=== PATIENT | male | born 1955 | race Caucasian/White ===

== ENCOUNTER 2016-09-07 17:23 | Observation (INO) | payer BC ==
[2016-09-07] MEDS ORDERED: 0.9 % SODIUM CHLORIDE 1,000 ML BAG IV ONE (17:31)
[2016-09-07] MEDS ORDERED: HYDROMORPHONE HCL 1 MG/ML CPJ IVP ONE ×3 (17:31→18:54)
[2016-09-07] MEDS ORDERED: ONDANSETRON HCL IV 4 MG/2 ML VIAL IVP ONE (17:31)
[2016-09-07 17:50] LABS: BASO % 0.2 % (0-6); EOS % 1.4 % (0-6); GRAN % 53.3 % (47-80); HEMATOCRIT 43.5 % (42.0-52.0); HEMOGLOBIN 14.7 gm/dl (14.0-18.0); LYMPH % 36.7 % (16-45); MEAN CELL VOLUME 97.3 fl (81-97); MEAN CORPUSCULAR HEMOGLOBIN 32.9 pg (27-33); MEAN CORPUSCULAR HGB CONC 33.8 g/dl (32-36); MEAN PLATELET VOLUME 10.2 fl (7.4-10.4); MONO % 8.4 % (0-9); PLATELET COUNT 248 K/uL (130-400); RED BLOOD COUNT 4.47 M/uL (4.40-5.70); RED CELL DISTRIBUTION WIDTH 12.7 % (11.5-14.5); WHITE BLOOD COUNT W/O DIFF 12.2 K/uL (4.2-12.2)
--- NOTE | 2016-09-07 17:53 | Emergency Department Record ---
History of Present Illness - General Chief Complaint: Fall Injury Stated Complaint: FALL Time Seen by Provider: 09/07/16 17:31 Source: Patient Mode of Arrival: Wheelchair Limitations: No limitations - History of Present Illness Initial Comments: The patient is here due to falling 10 feet off a scaffold and landing on the R foot. He then rolled to his R and onto his R shoulder sustaining severe R foot pain and inability to walk. The patient denies hitting his head or injuring his back, neck, head, ribs or abdomen. Presently he is ONLY complaining of R foot pain. MD Complaint: Fall Onset/Timin -: Minutes(s) Fall From: Other When Fall Occurred: Just prior to arrival Fall Witnessed: Yes, by bystander Place Fall Occurred: Home Loss of Consciousness: None Prolonged Down Time?: No Symptoms Prior to Fall: None Severity: Severe Severity scale (1-10): 10 Quality: Sharp Context: Other Associated Symptoms: Unable to walk - Ricardo Coma Scale Eye Response: (4) Open spontaneously Motor Response: (6) Obeys commands Verbal Response: (5) Oriented Ricardo Total: 15 - Related Data Previous Rx's Medication Instructions Recorded Hydrocodone/Acetaminophen [Bryan 1 - 2 each PO .EVERY 4-6 HRS PRN 09/07/16 5-325 Tablet] #20 tablet Allergies Allergy/AdvReac Type Severity Reaction Status Date / Time codeine Allergy ALTERED Verified 09/17/14 13:22 MENTAL STATUS Travel Screening - Travel/Exposure Within Last 30 Days Have you traveled within the last 30 days?: No Past Medical History - SOCIAL HISTORY Smoking Status: Never smoker Alcohol Use: Occassional Drug Use: None - RESPIRATORY Hx Respiratory Disorders: No - CARDIOVASCULAR Hx Cardio Disorders: No - NEURO Hx Neuro Disorders: No - GI Hx GI Disorders: No - Hx Genitourinary Disorders: No - ENDOCRINE Hx Endocrine Disorders: No - MUSCULOSKELETAL Hx Musculoskeletal Disorders: Yes Hx Arthritis: Yes - PSYCH Hx Psych Problems: No - HEMATOLOGY/ONCOLOGY Hx Hematology/Oncology Disorders: No Family Medical History Any Significant Family History?: No Physical Exam - General General Appearance: Alert, Oriented x3, Cooperative, No acute distress - Head Head exam: Atraumatic, Normocephalic, Normal inspection - Eye Eye exam: Normal appearance, PERRL - Neck Neck exam: Normal inspection, Full ROM. negative: Tenderness (There is no posterior tenderness and no pain with ROM.) - Respiratory Respiratory exam: Normal lung sounds bilaterally. negative: Respiratory distress - Cardiovascular Cardiovascular Exam: Regular rate, Normal rhythm, Normal heart sounds - GI/Abdominal GI/Abdominal exam: Soft, Normal bowel sounds. negative: Guarding, Rebound, Rigid, Tenderness - Extremities Extremities exam: Normal inspection, Normal capillary refill, Tenderness (There is extreme R foot and ankle tenderness. There is presently no swelling or bruising.), Other (The R foot is NVI with normal pulses and sensation.). negative: Full ROM - Neurological Neurological exam: Alert, Oriented X3. negative: Altered, Motor sensory deficit - Psychiatric Psychiatric exam: negative: Anxious Course Vital Signs 09/07/16 17:41 Temperature 97.8 F Pulse Rate 87 Respiratory 20 Rate Blood Pressure 158/82 Pulse Ox 98 - Reevaluation(s) Reevaluation #1: The patient is doing very well at this time. He denies any pain other than the R foot and ankle. He specifically denies any TERRY, neck pain, CP, SOB, AP, or back pain. On exam his abdomen is very soft and nontender in all 4 quads. 09/07/16 18:06 09/07/16 18:07 Reevaluation #2: The patient is doing better at this time but is still having a lot of pain in the foot. I did discuss the xrays with the patient and the need for F/U with Orthopedics. I did discuss the case with Dr. Temple ([facility]) and he will see the patient at 2:00pm tomorrow for re-evaluation. 09/07/16 18:47 09/07/16 19:08 Reevaluation #3: The patient is still in extreme pain and discomfort. Due to that fact I did discuss the case with Dr. Jacob and he is willing to admit the patient overnight to the hospital for pain control. 09/07/16 19:07 Medical Decision Making - Data Complexity MDM Data: Labs Ordered and/or Reviewed, X-Ray Ordered and/or Reviewed - Lab Data Result diagrams: 09/07/16 17:40 09/07/16 17:40 Lab Results 09/07/16 Range/Units 17:40 WBC 12.2 (4.2-12.2) K/uL RBC 4.47 (4.40-5.70) M/uL Hgb 14.7 (14.0-18.0) gm/dl Hct 43.5 (42.0-52.0) % MCV 97.3 H (81-97) fl MCH 32.9 (27-33) pg MCHC 33.8 (32-36) g/dl RDW 12.7 (11.5-14.5) % Plt Count 248 (130-400) K/uL MPV 10.2 (7.4-10.4) fl Gran % 53.3 (47-80) % Lymphocytes % 36.7 (16-45) % Monocytes % 8.4 (0-9) % Eosinophils % 1.4 (0-6) % Basophils % 0.2 (0-6) % - Radiology Data Radiology results: Report reviewed (R Ankle: Neg R Foot: Comminuted Calcaneal fx.) Disposition Disposition: Admit Clinical Impression: Right calcaneal fracture Qualifiers: Encounter type: initial encounter Calcaneus location: unspecified portion of calcaneus Fracture type: closed Fracture alignment: displaced Qualified Code(s) : S92.001A - Unspecified fracture of right calcaneus, initial encounter for closed fracture Disposition: Still a Patient at [facility] Decision to Admit: Admit from ER Decision to Admit Date: 09/07/16 Decision to Admit Time: 19:06 Accepting Physician: Nidia Time Discussed w/Accepting Physician: 19:07 Condition: (1) Good Instructions: Calcaneal Fracture (ED) Additional Instructions: Please use Bryan for pain and ice and elevate the foot. Please return to the Hospital at 2pm tomorrow for recheck by Dr. Temple. Do not weight bear on the R foot and use crutches at all times. Prescriptions: Hydrocodone/Acetaminophen [Bryan 5-325 Tablet] 1 - 2 each PO .EVERY 4-6 HRS PRN #20 tablet PRN Reason: Pain Forms: Patient Portal Access Time of Disposition: 18:51
[2016-09-07 18:04] LABS: ALB/GLOB RATIO 1.6 (1.1-1.8); ALBUMIN 4.6 gm/dL (3.5-5.0); ALKALINE PHOSPHATASE 67 U/L (38-126); ALT/SGPT 25 U/L (21-72); ANION GAP 11.8 (7-16); AST/SGOT 33 U/L (17-59); BLOOD UREA NITROGEN 16 mg/dL (9-20); CARBON DIOXIDE 24.2 mmol/L (22-30); CREATININE 1.2 mg/dL (0.66-1.25); EST GLOMERULAR FILTRATION RATE > 60 ml/min; GLUCOSE,RANDOM 109 mg/dL (70-110); TOTAL PROTEIN 7.4 gm/dL (6.3-8.2)
[2016-09-07 18:05] LABS: INR 0.94; PARTIAL THROMBOPLASTIN TIME 23.6 SECONDS (24.5-39.1); PROTHROMBIN TIME (PATIENT) 10.6 SECONDS (9.5-12.1)
[2016-09-07] MEDS ORDERED: HYDROMORPHONE HCL 1 MG/ML CPJ IVP PRN (20:05)
[2016-09-07] MEDS ORDERED: ACETAMINOPHEN 500 MG TABLET PO PRN (20:05)
[2016-09-07] MEDS: ONDANSETRON HCL IV 4 MG/2 ML VIAL IVP PRN (23:40)
[2016-09-07] MEDS: HYDROMORPHONE HCL 2 MG/ML VIAL IVP PRN (23:54)
[2016-09-08] MEDS: HYDROMORPHONE HCL 2 MG/ML VIAL IVP PRN ×2 (04:11→07:48)
[2016-09-08] MEDS: ONDANSETRON HCL IV 4 MG/2 ML VIAL IVP PRN ×2 (04:18→07:46)
--- NOTE | 2016-09-08 07:14 | RADIOLOGY REPORT ---
EXAM: RIGHT ANKLE HISTORY: PATIENT FELL TEN FEET FROM SCAFFOLDING WITH RIGHT ANKLE PAIN. TECHNIQUE: Three views of the right ankle were obtained. Comparison: None. Encounter: Initial. FINDINGS: The right ankle appears intact with no definite fracture of the ankle seen, however, there is a comminuted fracture of the calcaneus. Please see the right foot report for further description. No dislocation at the right ankle evident. IMPRESSION: 1. NO FRACTURE OR DISLOCATION OF THE RIGHT ANKLE ITSELF IDENTIFIED. 2. COMMINUTED CALCANEAL FRACTURE. JOB NUMBER: [id number] MTDD
--- NOTE | 2016-09-08 07:18 | RADIOLOGY REPORT ---
EXAM: RIGHT FOOT HISTORY: PATIENT FELL TEN FEET OFF SCAFFOLDING AND LANDED ON RIGHT LEG WITH RIGHT FOOT PAIN. TECHNIQUE: Four views of the right foot were obtained. Comparison: None. Encounter: Initial. FINDINGS: There is a considerably comminuted fracture of the calcaneus with flattening of bowler's angle. The fracture line probably extends up into the subtalar joint although is not seen to extend anteriorly into the calcaneal cuboid joint. No additional fracture elsewhere in the right foot identified. No dislocation is seen. Mild hallux valgus deformity at the first MTP joint. IMPRESSION: COMMINUTED FRACTURE OF THE RIGHT CALCANEUS. JOB NUMBER: [id number] MTDD
[2016-09-08] MEDS: HYDROCODONE/APAP 7.5/325MG TABLET PO PRN ×2 (11:56→12:56)
[2016-09-08] MEDS ORDERED: HYDROCODONE/APAP 7.5/325MG TABLET PO ONE (12:53)
--- NOTE | 2016-09-08 13:58 | History and Physical Report ---
CHIEF COMPLAINT: Fall off scaffolding. HISTORY OF CHIEF COMPLAINT: This 61-year-old male was helping build a pole barn at his friend's house when the scaffolding fell over. He was about 6-10 feet off the ground. He landed on a hard surface mostly on the right heel and right leg. He rolled and he has a scrape on the right arm and his left knee is slightly sore. He was seen in the emergency department by Dr. Naik and admitted to the hospital because of severe pain. He could not get the patient to go home with a posterior mold. Dr. Temple was consulted by phone who is planning to see him today at 2-o'clock this afternoon at [facility]. MEDICAL HISTORY: He has had low back pain. A year ago he was taking Lincoln for that but he has not been on Lincoln for a year. He has had some arthritis in the past. SURGICAL HISTORY: Vasectomy, appendectomy, and stomach lining surgery. CURRENT MEDICATIONS: No medications on admission. ALLERGIES: CODEINE, which makes him nauseated and it caused some confusion for him. SOCIAL HISTORY: Unremarkable. Never smoked cigarettes. Occasional alcohol use. No illegal drug use. FAMILY HISTORY: Unremarkable. SYSTEMS REVIEW: HEENT: No upper respiratory infection symptoms, cough, cold, or congestion. Cardiovascular: No chest pain, palpitations, or arrhythmia. Respiratory: No cough, cold, or congestion. Gastrointestinal: No nausea, vomiting, diarrhea, black stools, or bloody stools. Genitourinary: No dysuria, hematuria, frequency, or burning on urination. Musculoskeletal: He denies any head pain, neck pain, spine pain. Denies chest pain. Denies abdominal pain. No loss of consciousness. He is moving his other 3 extremities well. The right extremity is very painful. He is moving it at the knee appropriately. He does have some arthritis. Neurological: No CVA, paralysis, or paresthesias. Endocrine: No diabetes or thyroid disease. Integument: No rash, ulcerative change of moles, or yellow skin. PHYSICAL EXAMINATION: VITAL SIGNS: Height 6 feet, weight 230 pounds. Temperature 97.9, pulse 87, blood pressure 164/97, respiratory rate 18, pulse ox 95% on room air. HEENT: Pupils are equal, round, and reactive to light and accommodation. Extraocular movements are intact. Throat is clear. Nose is clear. Tympanic membranes are gómez. NECK: Supple. No jugular venous distention. No hepatojugular reflux. No carotid bruits. Thyroid is smooth. CARDIOVASCULAR: Regular rate and rhythm without murmurs, clicks, rubs, or gallops. RESPIRATORY: Clear to auscultation and percussion. ABDOMEN: Soft, nontender. No hepatosplenomegaly. No masses. No tenderness. Bowel sounds active. No bruits. EXTREMITIES: No pedal edema. No cyanosis, no clubbing. Full range of motion. Peripheral pulses good. There is pain in the right ankle and foot area. He has a posterior mold on the right ankle and foot. He has good capillary refill of the toes and he has good sensation of the toes when I touch his toes. BREASTS: Normal male breasts. GENITALIA: Deferred. NEUROLOGIC: Cranial nerves II-XII intact. No gross deficits. Sensation normal, strength normal. Deep tendon reflexes equal bilaterally. Babinski negative. MENTAL STATUS: Alert and oriented x3. IMPRESSION: 1. Right calcaneus comminuted fracture of the foot. 2. Strain of the left knee. 3. Abrasion to the right shoulder. PLAN: Dr. Temple for consultation. Pain control. We will switch over to Lincoln 7.5 and see how he tolerates that. [facility]
[2016-09-08] MEDS ORDERED: OXYCODONE/APAP 7.5MG/325MG TABLET PO PRN (14:06)
--- NOTE | 2016-09-08 14:06 | Discharge Note ---
VTE H&P Assessment - Risk for VTE Risk for VTE: No Risk Level: Very Low Risk Assessment Date: 09/08/16 Risk Assessment Time: 14:17 VTE Orders Placed or Will Be Placed: No VTE Reason for No Prophylaxis: Not Indicated Discharge Medications - Discharge Medications Prescriptions: Hydrocodone/Acetaminophen [Hamilton 5-325 Tablet] 1 - 2 each PO .EVERY 4-6 HRS PRN #20 tablet PRN Reason: Pain Oxycodone HCl [Oxycontin] 20 mg PO Q12H #10 Oxycodone HCl/Acetaminophen [Percocet 7.5mg/325mg] 1 each PO Q4H PRN #40 tab PRN Reason: Analgesia Home Medications: Ambulatory Orders Hydrocodone/Acetaminophen [Hamilton 5-325 Tablet] 1 - 2 each PO .EVERY 4-6 HRS PRN #20 tablet 09/07/16 [Last Taken Unknown] Oxycodone HCl [Oxycontin] 20 mg PO Q12H #10 09/08/16 [Last Taken Unknown] Oxycodone HCl/Acetaminophen [Percocet 7.5mg/325mg] 1 each PO Q4H PRN #40 tab 04/15 [Last Taken Unknown] Discharge Note - Date Date of Discharge Note: 09/08/16 Condition: (1) Good Instructions: Calcaneal Fracture (ED) Additional Instructions: Please use Hamilton for pain and ice and elevate the foot. Please return to the Hospital at 2pm tomorrow for recheck by Dr. Temple. Do not weight bear on the R foot and use crutches at all times. Prescriptions: Hydrocodone/Acetaminophen [Hamilton 5-325 Tablet] 1 - 2 each PO .EVERY 4-6 HRS PRN #20 tablet PRN Reason: Pain Forms: Patient Portal Access
[2016-09-08] MEDS ORDERED: OXYCODONE SR 20 MG TAB.ER.12H PO SCH (14:15)
--- NOTE | 2016-09-08 14:30 | Discharge Note ---
VTE H&P Assessment - Risk for VTE Risk for VTE: No Risk Level: Very Low Risk Assessment Date: 09/08/16 Risk Assessment Time: 14:17 VTE Orders Placed or Will Be Placed: No VTE Reason for No Prophylaxis: Not Indicated Discharge Medications - Discharge Medications Prescriptions: Hydrocodone/Acetaminophen [Boyd 5-325 Tablet] 1 - 2 each PO .EVERY 4-6 HRS PRN #20 tablet PRN Reason: Pain Oxycodone HCl [Oxycontin] 20 mg PO Q12H #10 Oxycodone HCl/Acetaminophen [Percocet 7.5mg/325mg] 1 each PO Q4H PRN #40 tab PRN Reason: Analgesia Home Medications: Ambulatory Orders Hydrocodone/Acetaminophen [Boyd 5-325 Tablet] 1 - 2 each PO .EVERY 4-6 HRS PRN #20 tablet 09/07/16 [Last Taken Unknown] Oxycodone HCl [Oxycontin] 20 mg PO Q12H #10 09/08/16 [Last Taken Unknown] Oxycodone HCl/Acetaminophen [Percocet 7.5mg/325mg] 1 each PO Q4H PRN #40 tab 04/15 [Last Taken Unknown] Discharge Note - Date Date of Discharge Note: 09/08/16 Disposition: Home, Self-Care Condition: (1) Good Instructions: Calcaneal Fracture (ED) Additional Instructions: Please use Boyd for pain and ice and elevate the foot. Please return to the Hospital at 2pm tomorrow for recheck by Dr. Temple. Do not weight bear on the R foot and use crutches at all times. follow up with Dr. Jacob in one month sooner any problems Prescriptions: Hydrocodone/Acetaminophen [Boyd 5-325 Tablet] 1 - 2 each PO .EVERY 4-6 HRS PRN #20 tablet PRN Reason: Pain Oxycodone HCl [Oxycontin] 20 mg PO Q12H #10 Oxycodone HCl/Acetaminophen [Percocet 7.5mg/325mg] 1 each PO Q4H PRN #40 tab PRN Reason: Analgesia Forms: Patient Portal Access
--- NOTE | 2016-09-08 16:24 | Rehab Evaluation ---
Patient Information - Patient Information Diagnosis: Fractured R calcaneous Ordered Treatment: PT Evaluate and Treat Status: Initial Evaluation Past Medical/Surgical Hx: PAST MEDICAL/SURGICAL HISTORY Past Surgical History vasectomy appendix stomach lining PMH - Respiratory Hx Respiratory Disorders No PMH - Cardiovascular Hx Cardiovascular Disorders No PMH - Neuro Hx Neurological Disorders No PMH - GI Hx Gastrointestinal Disorders No PMH - Hx Genitourinary Disorders No PMH - Endocrine Hx Endocrine Disorders No PMH - Musculoskeletal Hx Musculoskeletal Disorders Yes Hx Arthritis Yes PMH - Psych Hx Psychiatric Problems No Hx Anxiety Yes PMH - Hematology/Oncology Hx Hematology/Oncology No Disorders Premorbid Status: Detail (The patient was independent with all mobility.) Social History: Detail (The patient lives with spouse in 2 story home with a flight of nine stairs to bed room and bathroom and a ramp at the enterance. The patient's states the patient will be living on first floor for now. The patient has a wheelchair he can also use for mobility.) Precautions: Other (NWB R) - Time With Patient Total Time Spent With Patient (Min): 30 Subjective Information - Subjective Information Per Patient (The patient complained of R LE pain but did not rate it using 0 to 10 pain scale.) Objective Data - Mental Status Patient Orientation: Oriented x3 - Visual Perception Appears within normal limits for therapeutic activities - ROM Not within normal limits (LE and UE ROM were WNL except for R ankle not tested secondary to immobilization.) - Strength/Tone Not within normal limits (UE and L LE strength was 5/5, R hip muscles were functional R knee and ankle were not tested secondary immobilization due to calcaneous fracture.) - Bed Mobility Independent (The patient was independent with supine to and from sit transfer and scooting up in bed.) - Transfers Independent (The patient was independent with sit to and from stand transfer.) - Balance Balance Sitting: Good Balance Standing: Fair (The patient required support of walker for support due to NWB status.) - Gait Detail (The patient ambulated independently with wheeled walker a distance of 45 feet x1, NWB on the R. The patient declined ambulating on stairs since he is using a ramp at home.) Therapy Assessment - Therapy Assessment Detail (The patient was independent with all mobility and safe using a wheeled walker. The patient correctly maintained NWB status.) Patient Education - Patient Education Teaching Topic: Equipment Use (Wheeled walker.) Response: Return Demonstration Teaching Method: Demonstration Teaching Recipient: Patient, Family Barriers To Learning: None Problem List - Problem List Physical Therapy Problem List: Detail (1) Calcaneal fracture) Goals - Goals Physical Therapy Goals: The patient was independent with bed mobility, transfers and ambulation with wheeled walker WB as tolerated on the R. Plan - Plan Physical Therapy Plan: The patient was discharged from PT to home.
--- NOTE | 2016-09-11 07:38 | CT SCAN REPORT ---
EXAM: CT OF THE RIGHT ANKLE WITH TWO DIMENSIONAL AND THREE DIMENSIONAL REFORMATS HISTORY: RIGHT CALCANEAL FRACTURE. TECHNIQUE: Contiguous axial images from the distal right tibia and fibula to the plantar aspect of the right ankle were obtained without contrast. Sagittal and coronal two dimensional as well as 3D/MIP reformatted images were obtained for better anatomic delineation. Comparison: Right ankle radiograph 09/07/16. FINDINGS: There is a severely comminuted fracture involving the entire right calcaneus. Depressed fractures of the calcaneal facets with Shawmut's angle of approximately 0. Numerous fracture lines extend to the posterior facet, middle facet, and anterior facet. Fracture lines extend to the anterior process of the calcaneus as well as the calcaneal tuberosity. No gross malalignment of the articular surfaces of the subtalar joint. The Lisfranc ligament appears intact. The ankle mortise appears intact. IMPRESSION: SEVERELY COMMINUTED FRACTURE INVOLVING THE ENTIRE RIGHT CALCANEUS INCLUDING THE SUBTALAR FACETS, ANTERIOR PROCESS OF THE CALCANEUS, AND CALCANEAL TUBERCLE. JOB NUMBER: [id number] MTDD
--- NOTE | 2016-09-11 09:43 | Medical Records Consult ---
DATE OF CONSULTATION: 09/08/2016 REASON FOR CONSULTATION: Right heel pain. This 61-year-old male was admitted to the hospital for overnight observation from the emergency room on 09/07/2016 when he had built some scaffolding, which he admits he did not construct properly, and he fell off of the scaffolding, falling approximately 6-8 feet, landing on both heels. The patient had severe pain. He felt a cracking sensation when he hit the ground. He did not complain of any back pain but did complain of pain in his left knee and his left foot, but that was minor discomfort compared to the severe pain that he had in his right heel. The x-rays which were obtained in the emergency department demonstrated evidence of a comminuted fracture of the calcaneus. Subsequently, a CT was ordered but not evaluated at the time of this consultation report. The radiographs which were reviewed showed a highly comminuted fracture with minimal displacement. There does appear to be fractures into the subtalar joint without significant displacement on the standard radiographs. The physical examination after removal of the splint placed in the emergency room demonstrates fracture blisters on both the medial and lateral side which were relatively small, being approximately 2 cm in greatest dimension. Extensive amount of swelling of his foot was present but the neurovascular status of his foot was intact. He had no calf pain, no thigh pain. DIAGNOSTIC IMPRESSION: Comminuted fracture of the right calcaneus. I have discussed the findings with the patient, placed him in a posterior sugar-tong plaster mold. He will follow up in the clinic in 2 weeks. He was given pain medications by Dr. Jacob and should he have any problems prior to being seen, he was instructed to call my office. ELLIOT
--- NOTE | 2016-09-11 09:53 | Discharge Summary ---
DISCHARGE DIAGNOSES: 1. Right calcaneus comminuted fracture. 2. Pain in the right foot and ankle. ATTENDING PHYSICIAN: Benjamin Jacob DO REASON FOR HOSPITALIZATION: This 61-year-old male fell off a scaffolding at his friend's house building a barn, and he landed on his right ankle and foot. He was seen in the emergency department by Dr. Naik because of severe pain. He was admitted to the hospital for pain control and to seek followup with Orthopedics to see Dr. Temple at 2 p.m. today on 09/08/2016. The patient required IV Dilaudid through the night and after consultation with Dr. Temple, a new splint has been applied. He was given training for a walker. HOSPITAL COURSE: Improved. DISCHARGE INSTRUCTIONS: Follow up with Dr. Temple on 09/21/2016 at [facility]. Pain medications on discharge: OxyContin 20 mg b.i.d. and 10 pills were prescribed. Percocet 7.5 one every 4 hours and 40 pills were prescribed. The patient was also instructed to follow up with me in a month and to follow up in the office sooner if he is having troubles with pain or any problems at all. ELLIOT
== END 2016-09-08 16:05 | disposition home or self-care (01) ==
LOC: ER 17:23 → MEDSURG 19:52
PROVIDERS: ADMIT Emergency Medicine; ATTEND Emergency Medicine
DX: G89.11 Acute pain due to trauma (principal); S92.021A Displaced fracture of anterior process of right calcaneus, initial encounter for closed fracture; W12.XXXA Fall on and from scaffolding, initial encounter; Y93.H3 Activity, building and construction; Y92.096 Garden or yard of other non-institutional residence as the place of occurrence of the external cause
CPT/HCPCS: 80053; 85025; 85610; 85730; 96374; 96375; 96376; 99217; 99220; 99285; J1170; J2405; J7030

== ENCOUNTER 2017-10-23 15:31 | Observation (INO) | payer BC ==
[2017-10-23] MEDS ORDERED: ASPIRIN 81 MG CHEWABLE TABLET PO ONE (15:59)
[2017-10-23] MEDS ORDERED: 0.9 % SODIUM CHLORIDE 1000ML 1,000 ML IV PRN (15:59)
[2017-10-23] MEDS ORDERED: ONDANSETRON HCL IV 4 MG/2 ML VIAL IVP ONE (16:03)
[2017-10-23] MEDS ORDERED: DIPHENHYDRAMINE HCL 50 MG/ML VIAL IV ONE (16:04)
--- NOTE | 2017-10-23 16:11 | Emergency Department Record ---
History of Present Illness - General Chief Complaint: Dizziness Stated Complaint: VOMITING,DIZINESS,SWEATS Time Seen by Provider: 10/23/17 15:59 Source: Patient, Family Mode of Arrival: Ambulatory Limitations: No limitations - History of Present Illness Initial Comments: Pt to ED by car with . One hour CHEMIST INTERN pt "sitting on swing set with grand kids and felt out of kilter". Pt states he is not dizzy but feels off equilibrium and became nauseated and vomited a small amount. Had sweating and "felt bad". Pt denies feeling chest pain or palpitations. No jaw or should/ back pain. Pt is an exsmoker that drinks "3-4 beers a day" but over the past 4 days has been drinking 8-12 beers a day while son is visiting from [place]. Has had "a few beers to day". Denies being " alcoholic". No DM, HTN, Cancer by history but admits he does not go to the doctor to be checked. Pt states he felt better on arrival but hten had an episode in [facility] ED of diaphoresis and vomiting. No CP in ED. Denies other drug use. MD Complaint: Lightheadedness Onset/Timin -: Days(s) Description: Nausea, Near-syncope, Off-balance, Sense of movement History of Same: No History of Trauma: No Severity: Severe Improves With: Nothing Worsens With: Nothing Associated Symptoms: Shortness of breath, Syncope, Weakness - Ricardo Coma Scale Eye Response: (4) Open spontaneously Motor Response: (6) Obeys commands Verbal Response: (5) Oriented [place] Total: 15 - Symptoms of Stroke Onset of Symptoms Date: 10/23/17 Onset of Symptoms Time: 15:30 Symptoms of stroke: Dizziness, Vertigo - Related Data Previous Rx's Medication Instructions Recorded Hydrocodone/Acetaminophen [[place] 1 - 2 each PO .EVERY 4-6 HRS PRN 09/07/16 5-325 Tablet] #20 tablet Allergies Allergy/AdvReac Type Severity Reaction Status Date / Time codeine Allergy ALTERED Verified 10/23/17 15:43 MENTAL STATUS Travel Screening - Travel/Exposure Within Last 30 Days Have you traveled within the last 30 days?: No Review of Systems Constitutional: Denies: Chills, Fever, Malaise, Weakness Eyes: Denies: Eye discharge, Eye pain, Vision change ENT: Reports: Congestion Respiratory: Denies: Cough, Hemoptysis, Wheezes Cardiovascular: Denies: Arrhythmia, Chest pain, Palpitations, Syncope Endocrine: Denies: Fatigue, Polydipsia, Polyuria Gastrointestinal: Reports: Nausea, Vomiting. Denies: Abdominal pain, Melena Skin: Denies: Bruising, Rash Neurological: Reports: Vertigo. Denies: Abnormal gait, Confusion, Headache Psychiatric: Denies: Depression Hematological/Lymphatic: Denies: Anemia Past Medical History - SOCIAL HISTORY Smoking Status: Former smoker Alcohol Use: Heavy Alcohol Use Comment: 3-4 beers/day Drug Use: None - RESPIRATORY Hx Respiratory Disorders: No - CARDIOVASCULAR Hx Cardio Disorders: Yes Hx Hypertension: Yes Comment:: high cholesterol - NEURO Hx Neuro Disorders: No - GI Hx GI Disorders: No - Hx Genitourinary Disorders: No - ENDOCRINE Hx Endocrine Disorders: No - MUSCULOSKELETAL Hx Musculoskeletal Disorders: Yes Hx Arthritis: Yes - PSYCH Hx Psych Problems: Yes Hx Anxiety: Yes - HEMATOLOGY/ONCOLOGY Hx Hematology/Oncology Disorders: No Family Medical History Any Significant Family History?: Yes Hx Dementia: Father Hx Stroke: Mother Physical Exam - General General Appearance: Oriented x3, Cooperative, Moderate distress Limitations: No limitations - Head Head exam: Atraumatic - Eye Eye exam: Normal appearance, PERRL, EOMI. negative: Nystagmus, Periorbital tenderness Pupils: Normal accommodation - ENT ENT exam: Mucous membranes moist, TM's normal bilaterally (bilateral wax) Nasal Exam: Normal inspection Mouth exam: Normal external inspection Throat exam: Normal inspection - Neck Neck exam: Normal inspection, Full ROM. negative: Lymphadenopathy, Tenderness - Respiratory Respiratory exam: Normal lung sounds bilaterally. negative: Rales, Respiratory distress, Rhonchi, Wheezes - Cardiovascular Cardiovascular Exam: Regular rate, Normal rhythm. negative: Irregular rhythm, Systolic murmur Peripheral Pulses: 2+: Radial (R), Radial (L), Dorsalis Pedis (R), Dorsalis Pedis (L) - GI/Abdominal GI/Abdominal exam: Soft, Normal bowel sounds. negative: Guarding, Rebound, Tenderness - Rectal Rectal exam: Deferred - exam: Deferred - Extremities Extremities exam: Normal inspection. negative: Joint swelling, Pedal edema - Neurological Neurological exam: Alert, CN II-XII intact, Oriented X3. negative: Motor sensory deficit - Psychiatric Psychiatric exam: Normal affect, Normal mood - Skin Skin exam: Normal color Stroke Assessment - NIH Stroke Scale 1a. Level of Consciousness: (0) Alert 1b. LOC Questions: (0) Answers Correctly 1c. LOC Commands: (0) Performs Tasks Correctly 2. Best Gaze: (0) Normal 3. Visual: (0) No Visual Loss 4. Facial Palsy: (0) Normal Symmetrical Movement 5a. Motor Arm Left: (0) No Drift 5b. Motor Arm Right: (0) No Drift 6a. Motor Leg Left: (0) No Drift 6b. Motor Leg Right: (0) No Drift 7. Limb Ataxia: (0) Absent 8. Sensory: (0) Normal 9. Best Language: (0) No Aphasia Course Vital Signs 10/23/17 15:36 Temperature 98.0 F Pulse Rate 81 Respiratory 20 Rate Blood Pressure 187/107 Pulse Ox 96 Procedures - EKG Initial Date: 10/23/17 Time: 16:17 EKG: Normal EKG (HR 76) Medical Decision Making - Lab Data Result diagrams: 10/23/17 15:45 10/23/17 15:45 Disposition Disposition: Admit Clinical Impression: Dizziness of unknown cause, Diaphoresis, Vomiting Clinical Impression: (Ruled Out): Cardiac anomaly Disposition: Still a Patient at [facility] Return To Work/School Note Provided: No Decision to Admit: Admit from ER Decision to Admit Date: 10/23/17 Decision to Admit Time: 18:21 Accepting Physician: Malena Menjivar Discussed w/Accepting Physician: 18:21 Condition: (3) Guarded Forms: Patient Portal Access Quality - Quality Measures Quality Measures: N/A - Blood Pressure Screening Does Patient Have Any of the Following: No Blood Pressure Classification: Hypertensive Reading Systolic Measurement: 187 Diastolic Measurement: 107 Screening for High Blood Pressure: < First Hypertensive BP, F/U Documented > [ [id number]] First Hypertensive Follow-up Interventions: Lifestyle modifications., Referral to alternative/primary care provider. Lifestyle Modification: Dietary Approaches to Stop Hypertension (DASH) Eating Plan
[2017-10-23 16:14] LABS: BASO % 0.2 % (0-6); EOS % 1.8 % (0-6); GRAN % 51.3 % (47-80); HEMATOCRIT 43.6 % (42.0-52.0); HEMOGLOBIN 15.1 gm/dl (14.0-18.0); LYMPH % 37.6 % (16-45); MEAN CELL VOLUME 97.5 fl (81-97); MEAN CORPUSCULAR HEMOGLOBIN 33.8 pg (27-33); MEAN CORPUSCULAR HGB CONC 34.6 g/dl (32-36); MEAN PLATELET VOLUME 10.2 fl (7.4-10.4); MONO % 9.1 % (0-9); PLATELET COUNT 225 K/uL (130-400); RED BLOOD COUNT 4.47 M/uL (4.40-5.70); RED CELL DISTRIBUTION WIDTH 12.6 % (11.5-14.5); WHITE BLOOD COUNT W/O DIFF 9.7 K/uL (4.2-12.2)
[2017-10-23 16:24] LABS: BLOOD UREA NITROGEN 16 mg/dL (8-23)
[2017-10-23 16:25] LABS: EST GLOMERULAR FILTRATION RATE > 60 mL/min; TOTAL PROTEIN 7.5 g/dL (6.6-8.7)
[2017-10-23 16:27] LABS: GLUCOSE,RANDOM 126 mg/dL (74-109)
[2017-10-23 16:29] LABS: INR 0.9; PARTIAL THROMBOPLASTIN TIME 24.9 SECONDS (24.5-39.1); PROTHROMBIN TIME (PATIENT) 10.1 SECONDS (9.5-12.1)
[2017-10-23 16:30] LABS: ALB/GLOB RATIO 1.6 (1.1-1.8); ALBUMIN 4.6 g/dL (4.0-5.0); ALKALINE PHOSPHATASE 70 U/L (40-129); ALT/SGPT 12 U/L (<41); AST/SGOT 26 U/L (10.0-50.0)
[2017-10-23 18:20] LABS: AMPHETAMINE SCREEN URINE NOT DETECTED; BARBITURATE SCREEN URINE NOT DETECTED; BENZODIAZEPINE SCREEN URINE NOT DETECTED; COCAINE SCREEN URINE NOT DETECTED; METHADONE SCREEN URINE NOT DETECTED; METHAMPHETAMINE SCREEN NOT DETECTED; OPIATE SCREEN URINE NOT DETECTED; OXYCODONE SCREEN URINE NOT DETECTED; PHENCYCLIDINE SCREEN URINE NOT DETECTED; PROPOXYPHENE SCREEN URINE NOT DETECTED; THC SCREEN URINE DETECTED; TRICYCLIC ANTIDEPRESSANT SCRN NOT DETECTED
[2017-10-24 07:53] LABS: BASO % 0.2 % (0-6); EOS % 1.6 % (0-6); GRAN % 58.7 % (47-80); HEMOGLOBIN 15.2 gm/dl (14.0-18.0); LYMPH % 29.9 % (16-45); MEAN CELL VOLUME 97.8 fl (81-97); MEAN CORPUSCULAR HEMOGLOBIN 33.8 pg (27-33); MEAN CORPUSCULAR HGB CONC 34.5 g/dl (32-36); MONO % 9.6 % (0-9); PLATELET COUNT 217 K/uL (130-400); RED CELL DISTRIBUTION WIDTH 12.8 % (11.5-14.5); WHITE BLOOD COUNT W/O DIFF 9.5 K/uL (4.2-12.2)
[2017-10-24 08:14] LABS: ALB/GLOB RATIO 1.6 (1.1-1.8); ALBUMIN 4.2 g/dL (4.0-5.0); ALKALINE PHOSPHATASE 65 U/L (40-129); ALT/SGPT 11 U/L (<41); AST/SGOT 23 U/L (10.0-50.0); BLOOD UREA NITROGEN 12 mg/dL (8-23); CREATININE 0.9 mg/dL (0.7-1.2); EST GLOMERULAR FILTRATION RATE > 60 mL/min; GLUCOSE,RANDOM 112 mg/dL (74-109); TOTAL PROTEIN 6.9 g/dL (6.6-8.7)
--- NOTE | 2017-10-24 08:34 | History & Physical ---
History of Present Illness - Date of Service Date of Service for History & Physical: 10/25/17 - History of Present Illness Admitting Diagnosis: dizziness with diaphoresis History of Present Illness: 62 to male admitted obs for 2 events of diaphoresis, dizziness, and vomiting. PMH limited, pt denies primary care or health management outpt. Former smoker, quit 20 years ago, daily ETOH use 3-4 beers daily but recent increase to up to 12 daily since son has been [place]. Denies alcoholism. Pt denies any current or chronic issues other than a URI that has turned into sinus issues causing congestion, nasal drainage, and pressure for the past week. Pt presented to ER via private care with . Reporting that he as on a swing, felt instantly dizzy, became diaphoretic, vomited and when down to his knees from the swing. Event was temporary, brought in to ER under his own power. Denies CP or any other radiating pain at that time. Another repeat event happened in ER, provider reported NSR on monitor but pt appeared in distress, diaphoretic and pale. Resolved on its own but remained for ACS r/o. BP 187/107, HR 81, RR 20, 96% RA, 98F WBC 9.7, hgb 15.1, Hct 43.6, plt 225 Na146, K 4, Cl 100, Cos 24, BUN 16, creatinine 1, GFR >60 1545, 2250, 0729 trop <0.010 trig 299 KDK 118m HDL 30, (total 189) EKG NSR CT head- negative for acute process, chronic sinusitis noted Card referral this afternoon Pt was medicated with IVP Benadryl 50mg, zofran 8mg IVP, ASA 81mg, and IVF NS at 75/hr. 10/24/17 Pt is asymptomatic other than continued complaints of sinus pressure and congestion. VSS through the night. Pt is A&Ox4. POC, last trop at 1500, Dr Feliz to see pt this afternoon. If negative cardiac concerns, dispo today with f/u new PCP, to be coordinated before dispo. Starting Flonase to decrease sinus complaints. 1430 rapid response called, pt was found to have sudden onset migraine with secondary hypertension. Pt reports having similar migraines 3 times in his life , related to stressful situations. Dr magana from ER managed RR, gave 0.1mg clonidine PO and 1mg ativan IVP. NIH negative, a&ox4. 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 BP still elevated, Dr Magana gave orders for repeat clonidine 0.1mg PO. Pt reports TERRY 5/ 10 after medications. 1600 Pt given toradol 30mg and solumedrol 125mg IVP for remaining headache cocktail. 1900 Pt is TERRY free but remains hypertensive with elevated HR high 90s sustained NSR (per nursing report). Metoprolol 12.5mg PO now ordered given, repeat BP HR in 1 hour. PCP none Travel Screening - Travel/Exposure Within Last 30 Days Have you traveled within the last 30 days?: No - Travel/Exposure Within Last Year Have you traveled outside the [place] in the last year?: No - Additonal Travel Details Have you been exposed to anyone with a communicable illness?: No - Travel Symptoms Symptom Screening: Joint & Muscle Aches, Weakness, Fatigue Review of Systems Constitutional: Denies: Chills, Fever, Malaise, Weakness Eyes: Denies: Eye discharge, Eye pain, Vision change ENT: Reports: Congestion Respiratory: Denies: Cough, Hemoptysis, Wheezes Cardiovascular: Denies: Arrhythmia, Chest pain, Palpitations, Syncope Endocrine: Denies: Fatigue, Polydipsia, Polyuria Gastrointestinal: Reports: Nausea, Vomiting. Denies: Abdominal pain, Melena Skin: Denies: Bruising, Rash Neurological: Reports: Vertigo. Denies: Abnormal gait, Confusion, Headache Psychiatric: Denies: Depression Hematological/Lymphatic: Denies: Anemia Past Medical History - SOCIAL HISTORY Smoking Status: Former smoker Alcohol Use: Occasional Alcohol Use Comment: regular use Drug Use: None - RESPIRATORY Hx Respiratory Disorders: No - CARDIOVASCULAR Hx Cardio Disorders: Yes Hx Hypertension: Yes Comment:: high cholesterol - NEURO Hx Neuro Disorders: No - GI Hx GI Disorders: No - Hx Genitourinary Disorders: No - ENDOCRINE Hx Endocrine Disorders: No - MUSCULOSKELETAL Hx Musculoskeletal Disorders: Yes Hx Arthritis: Yes - PSYCH Hx Psych Problems: Yes Hx Anxiety: Yes - HEMATOLOGY/ONCOLOGY Hx Hematology/Oncology Disorders: No Family Medical History Any Significant Family History?: Yes Family Hx Comment (NOT TO BE USED IN PLACE OF ITEMS BELOW): alzheimers, HTN Hx Dementia: Father Hx Stroke: Mother H&P Meds/Allergies - Allergies Allergies: Allergies Allergy/AdvReac Type Severity Reaction Status Date / Time codeine Allergy ALTERED Verified 10/23/17 15:43 MENTAL STATUS - Home Medications Previous Rx's Medication Instructions Recorded Hydrocodone/Acetaminophen [[place] 1 - 2 each PO .EVERY 4-6 HRS PRN 09/07/16 5-325 Tablet] #20 tablet - Active Medications Active Medications: Current Medications Aspirin (Ecotrin (Ec)) 81 mg PO DAILY NESTOR Physical Exam - Vital Signs Vital Signs: Vital Signs - Last 24 Hrs Temp Pulse Pulse Pulse Resp BP BP 10/24/17 06:07 10/24/17 06:00 97.9 F 74 16 10/24/17 02:00 97.9 F 65 16 10/23/17 22:00 97.9 F 64 16 10/23/17 21:00 56 L 70 18 10/23/17 19:48 98.4 F 70 18 154/87 10/23/17 19:10 84 20 184/110 10/23/17 18:00 82 151/97 10/23/17 17:30 75 160/79 10/23/17 17:14 67 16 172/90 10/23/17 16:16 69 20 171/93 10/23/17 15:36 98.0 F 81 20 187/107 BP Pulse Ox 10/24/17 06:07 98 10/24/17 06:00 178/92 98 10/24/17 02:00 121/77 96 10/23/17 22:00 146/85 98 10/23/17 21:00 10/23/17 19:48 92 L 10/23/17 19:10 98 10/23/17 18:00 10/23/17 17:30 10/23/17 17:14 98 10/23/17 16:16 96 10/23/17 15:36 96 - General General Appearance: Oriented x3, Cooperative, Moderate distress Limitations: No limitations - Head Head exam: Atraumatic - Eye Eye exam: Normal appearance, PERRL, EOMI. negative: Nystagmus, Periorbital tenderness Pupils: Normal accommodation - ENT ENT exam: Mucous membranes moist, TM's normal bilaterally (bilateral wax, left TM effusion, right TM obstructed by wax) Nasal Exam: Other (hypertrophic, red turbinates) Mouth exam: Normal external inspection Throat exam: Normal inspection - Neck Neck exam: Normal inspection, Full ROM. negative: Lymphadenopathy, Tenderness - Respiratory Respiratory exam: Normal lung sounds bilaterally. negative: Rales, Respiratory distress, Rhonchi, Wheezes - Cardiovascular Cardiovascular Exam: Regular rate, Normal rhythm. negative: Irregular rhythm, Systolic murmur Peripheral Pulses: 2+: Radial (R), Radial (L), Dorsalis Pedis (R), Dorsalis Pedis (L) - GI/Abdominal GI/Abdominal exam: Soft, Normal bowel sounds. negative: Guarding, Rebound, Tenderness - Rectal Rectal exam: Deferred - exam: Deferred - Extremities Extremities exam: Normal inspection, Tenderness (right ankle/foot- fx 1 yr ago ( slow healing)). negative: Joint swelling, Pedal edema - Neurological Neurological exam: Alert, CN II-XII intact, Oriented X3. negative: Motor sensory deficit - Psychiatric Psychiatric exam: Normal affect, Normal mood - Skin Skin exam: Normal color Results - Labs Result Diagrams: 10/24/17 07:29 10/24/17 07:29 Labs Last 24 Hours: Laboratory Results - last 24 hr 10/23/17 10/23/17 10/23/17 15:45 15:45 15:45 WBC 9.7 RBC 4.47 Hgb 15.1 Hct 43.6 MCV 97.5 H MCH 33.8 H MCHC 34.6 RDW 12.6 Plt Count 225 MPV 10.2 Gran % 51.3 Lymphocytes % 37.6 Monocytes % 9.1 H Eosinophils % 1.8 Basophils % 0.2 PT 10.1 INR 0.9 APTT 24.9 D-Dimer 0.51 Sodium 146 H Potassium 4.0 Chloride 100 Carbon Dioxide 24.0 Anion Gap 22.0 H BUN 16 Creatinine 1.0 Estimated GFR > 60 Random Glucose 126 H Calcium 9.4 Total Bilirubin 0.20 AST 26 ALT 12 Alkaline Phosphatase 70 Troponin T < 0.010 Total Protein 7.5 Albumin 4.6 Globulin 2.9 Albumin/Globulin Ratio 1.6 Urine Opiates Screen Ur Oxycodone Screen Urine Methadone Screen Ur Propoxyphene Screen Ur Barbituates Screen Ur Tricyclics Screen Ur Phencyclidine Scrn Ur Amphetamine Screen U Methamphetamines Scrn U Benzodiazepines Scrn Urine Cocaine Screen Urine Cannabis Screen Ethyl Alcohol 10/23/17 10/23/17 10/23/17 15:45 18:10 22:50 WBC RBC Hgb Hct MCV MCH MCHC RDW Plt Count MPV Gran % Lymphocytes % Monocytes % Eosinophils % Basophils % PT INR APTT D-Dimer Sodium Potassium Chloride Carbon Dioxide Anion Gap BUN Creatinine Estimated GFR Random Glucose Calcium Total Bilirubin AST ALT Alkaline Phosphatase Troponin T < 0.010 Total Protein Albumin Globulin Albumin/Globulin Ratio Urine Opiates Screen Not detected Ur Oxycodone Screen Not detected Urine Methadone Screen Not detected Ur Propoxyphene Screen Not detected Ur Barbituates Screen Not detected Ur Tricyclics Screen Not detected Ur Phencyclidine Scrn Not detected Ur Amphetamine Screen Not detected U Methamphetamines Scrn Not detected U Benzodiazepines Scrn Not detected Urine Cocaine Screen Not detected Urine Cannabis Screen Detected Ethyl Alcohol 0.010 - Imaging and Cardiology CT scan - head Status: Report reviewed (audio clip reviewed) VTE H&P Assessment - Risk for VTE Risk for VTE: Yes Risk Level: Moderate Risk Assessment Date: 10/24/17 Risk Assessment Time: 10:04 VTE Orders Placed or Will Be Placed: Yes AMI H&P Plan - EKG Initial Date: 10/23/17 Time: 16:17 EKG: Normal EKG (HR 76) Plan - Detailed Diagnosis and Plan (1) Dizziness of unknown cause Current Visit: Yes Status: Resolved Base Code: R42 - DIZZINESS AND GIDDINESS Comment: 10/24/17 -NSR tele, EKG negative -negative head CT other than sinusisit -labs WNL, trop negative-one remains -asymptomatic this AM 10/25/17 -cleared by cardiac consult Dr Feliz -asymptomatic since admission -negative trop series (2) Diaphoresis Current Visit: Yes Status: Resolved Base Code: R61 - GENERALIZED HYPERHIDROSIS Comment: 10/24/17 -no issues since arrival to the floor 10/25/17 -asymptomatic since admission (3) Vomiting Current Visit: Yes Status: Resolved Base Code: R11.10 - VOMITING, UNSPECIFIED Comment: 10/24/17 -no issues since arrival to the floor 10/25/17 - (4) Right calcaneal fracture Current Visit: No Status: Acute Qualifiers: Encounter type: initial encounter Calcaneus location: unspecified portion of calcaneus Fracture type: closed Fracture alignment: displaced Qualified Code(s): S92.001A - Unspecified fracture of right calcaneus, initial encounter for closed fracture Base Code: S92.001A - UNSP FRACTURE OF RIGHT CALCANEUS, INIT FOR CLOS FX Comment: 10/24/17 -Pt has seen Dr Temple, has been release from care -slow healing, no other interventions ordered -denies boot, or walking shoe orders -s/p fall 1 yr ago (5) Full code status Current Visit: Yes Status: Acute Base Code: Z78.9 - OTHER SPECIFIED HEALTH STATUS Comment: 10/24/17 full code status
[2017-10-24] MEDS: ASPIRIN 81 MG TABEC PO SCH (09:46)
[2017-10-24] MEDS: FLUTICASONE PROPIONATE 50MCG NASAL 16 GM BTL SCH (11:41)
[2017-10-24] MEDS ORDERED: ACETAMINOPHEN 500 MG TABLET PO PRN (13:14)
[2017-10-24] MEDS ORDERED: CLONIDINE HCL 0.1 MG TABLET PO ONE ×2 (14:35→15:15)
[2017-10-24] MEDS ORDERED: DIPHENHYDRAMINE HCL 50 MG/ML VIAL IVP ONE (14:45)
[2017-10-24] MEDS ORDERED: LORAZEPAM 2 MG/ML VIAL IV ONE (15:27)
[2017-10-24] MEDS ORDERED: KETOROLAC 30 MG/ML VIAL IVP ONE (16:32)
[2017-10-24] MEDS ORDERED: METHYLPREDNISOLONE PF 125MG/VIAL IVP ONE (16:33)
[2017-10-24] MEDS ORDERED: 0.9 % SODIUM CHLORIDE 1000ML 1,000 ML IV SCH (16:45)
[2017-10-24] MEDS ORDERED: LORAZEPAM 2 MG/ML VIAL IM PRN (17:07)
[2017-10-24] MEDS ORDERED: LORAZEPAM 2 MG/ML VIAL IV PRN ×2 (17:07)
[2017-10-24] MEDS ORDERED: DIAZEPAM 5 MG TABLET PO PRN (17:07)
[2017-10-24] MEDS ORDERED: METOPROLOL TART 25 MG TABLET PO ONE (19:11)
[2017-10-24] MEDS: THIAMINE MONONITRATE 100 MG TABLET PO SCH (23:17)
--- NOTE | 2017-10-25 06:11 | Medical Records Consult ---
DATE: 10/24/2017. HISTORY OF PRESENT ILLNESS: Mr. North is 62 years old. He was seen in consultation for hypertension. He has no significant medical history since he has not seen a physician in years. Mr. North presented to [facility] on 10/23/2017 with a migraine headache. During his hospitalization he was noted to have hypertension during episodes of migraine headache. Earlier today the patient had another episode of a migraine headache , and his systolic blood pressure was 180. He was given a dose of clonidine 0.1 mg daily. In addition he was given a low dose of Ativan for a concern of alcohol withdrawal. He denies angina, palpitations, transient ischemic attack, or syncope. Mr. North has no significant family history of coronary artery disease. He denies hypertension, hyperlipidemia, or diabetes. He was a smoker and quit at the age of 33. PAST SURGICAL HISTORY: None. PAST MEDICAL HISTORY: None. MEDICATIONS CURRENTLY: None. ALLERGIES: None. SOCIAL HISTORY: He is a retired clothing worker. He does drink but is not quantifying it at this time. He was a former smoker and quit at the age of 33. FAMILY HISTORY: His father and mother did not have coronary artery disease at an early age. PHYSICAL EXAMINATION: Vital Signs: He is afebrile. Vital signs are currently stable. Lungs: Clear to auscultation. Cardiac Examination: Normal. Abdomen: Soft. Extremities: Reveal no edema. Vascular: No carotid bruit were heard. LABORATORY PROFILE: Within normal limits. The patient had negative troponin. DIAGNOSTIC STUDIES: ECG demonstrated sinus rhythm with normal axis and intervals. FINAL IMPRESSION AND PLAN: Hypertension with migraine headache. At this time no further treatment is required. I would recommend Mr. North follow up with us on discharge as an outpatient. At that time we will recommend baseline echocardiogram and possible stress testing based on his symptoms at that time. ELLIOT
--- NOTE | 2017-10-25 08:54 | Physician Progress Note ---
Subjective - Date Date of Physician Progress Note: 10/25/17 Objective - Vital Signs Vital Signs: Vital Signs - Last 24 Hrs Temp Pulse Pulse Pulse Resp BP Pulse Ox 10/25/17 07:53 97.8 F 75 18 148/88 94 L 10/25/17 04:00 74 18 137/77 97 10/25/17 00:00 82 18 133/84 97 10/24/17 21:00 72 66 18 10/24/17 20:00 98.6 F 66 18 120/79 93 L 10/24/17 16:19 164/103 10/24/17 15:15 180/99 10/24/17 14:15 68 68 18 187/115 10/24/17 09:15 97.6 F 58 L 18 151/87 99 10/24/17 09:00 78 20 10/24/17 08:51 85 18 97 - General General Appearance: Oriented x3, Cooperative, Moderate distress Limitations: No limitations - Head Head exam: Atraumatic - Eye Eye exam: Normal appearance, PERRL, EOMI. negative: Nystagmus, Periorbital tenderness Pupils: Normal accommodation - ENT ENT exam: Mucous membranes moist, TM's normal bilaterally (bilateral wax, left TM effusion, right TM obstructed by wax) Nasal Exam: Other (hypertrophic, red turbinates) Mouth exam: Normal external inspection Throat exam: Normal inspection - Neck Neck exam: Normal inspection, Full ROM. negative: Lymphadenopathy, Tenderness - Respiratory Respiratory exam: Normal lung sounds bilaterally. negative: Rales, Respiratory distress, Rhonchi, Wheezes - Cardiovascular Cardiovascular Exam: Regular rate, Normal rhythm. negative: Irregular rhythm, Systolic murmur Peripheral Pulses: 2+: Radial (R), Radial (L), Dorsalis Pedis (R), Dorsalis Pedis (L) - GI/Abdominal GI/Abdominal exam: Soft, Normal bowel sounds. negative: Guarding, Rebound, Tenderness - Rectal Rectal exam: Deferred - exam: Deferred - Extremities Extremities exam: Normal inspection, Tenderness (right ankle/foot- fx 1 yr ago ( slow healing)). negative: Joint swelling, Pedal edema - Neurological Neurological exam: Alert, CN II-XII intact, Oriented X3. negative: Motor sensory deficit - Psychiatric Psychiatric exam: Normal affect, Normal mood - Skin Skin exam: Normal color Assessment and Plan - Assessment and Plan (1) Dizziness of unknown cause Current Visit: Yes Status: Resolved Base Code: R42 - DIZZINESS AND GIDDINESS Comment: 10/24/17 -NSR tele, EKG negative -negative head CT other than sinusisit -labs WNL, trop negative-one remains -asymptomatic this AM 10/25/17 -cleared by cardiac consult Dr Feliz -asymptomatic since admission -negative trop series (2) Diaphoresis Current Visit: Yes Status: Resolved Base Code: R61 - GENERALIZED HYPERHIDROSIS Comment: 10/24/17 -no issues since arrival to the floor 10/25/17 -asymptomatic since admission (3) Vomiting Current Visit: Yes Status: Resolved Base Code: R11.10 - VOMITING, UNSPECIFIED Comment: 10/24/17 -no issues since arrival to the floor 10/25/17 - (4) Right calcaneal fracture Current Visit: No Status: Chronic Qualifiers: Encounter type: initial encounter Calcaneus location: unspecified portion of calcaneus Fracture type: closed Fracture alignment: displaced Qualified Code(s): S92.001A - Unspecified fracture of right calcaneus, initial encounter for closed fracture Base Code: S92.001A - UNSP FRACTURE OF RIGHT CALCANEUS, INIT FOR CLOS FX Comment: 10/24/17 -Pt has seen Dr Temple, has been release from care -slow healing, no other interventions ordered -denies boot, or walking shoe orders -s/p fall 1 yr ago (5) Full code status Current Visit: Yes Status: Acute Base Code: Z78.9 - OTHER SPECIFIED HEALTH STATUS Comment: 10/24/17 full code status (6) Headache Current Visit: Yes Status: Acute Base Code: R51 - HEADACHE Comment: -1430 pt had sudden onset of TERRY and elevated BP, rapid response was activated -pt given 1mg ativan IVP and clonidine 0.1mg x2 (by Dr magana during rapid response) -mild effective for TERRY and BP - pt given TERRY cocktail of Benadryl 25mg IVP, toradol 30mg IVP, solumedrol 125mg IVP that resolved TERRY but BP and HR remained elevated, given metroprolol 12.5mg PO and BP/HR controlled 10/25/17 -pt has cardiac clearence from Cardiology, allowed coffee this AM -reports TERRY free with slightly elevated BP/HR, repeated metorolol 12.5mg -will dispo with metorprolol 12.5mg PO BID and f/u with new PCP in 2 weeks Results - Labs Result Diagrams: 10/24/17 07:29 10/24/17 07:29 Labs Last 24 Hours: Laboratory Results - last 24 hr 10/24/17 14:35 Troponin T < 0.010 - Imaging and Cardiology Chest x-ray Status: Report reviewed (audio clip reviewed), Image reviewed DVT/PE Assessment - Risk for VTE Risk for VTE: No Risk Level: Moderate Risk Assessment Date: 10/24/17 Risk Assessment Time: 10:04 VTE Orders Placed or Will Be Placed: Yes - Active Medicaitons Current Medications: Current Medications Acetaminophen (Tylenol 500mg Tab) 1,000 mg PO Q8H PRN PRN Reason: PAIN - MILD (1-4) Last Admin: 10/24/17 13:18 Dose: 1,000 mg Aspirin (Ecotrin (Ec)) 81 mg PO DAILY [facility] Last Admin: 10/24/17 09:46 Dose: 81 mg Cyanocobalamin (Vitamin B-12) 100 mcg PO DAILY [facility] Stop: 10/28/17 10:01 Diazepam (Valium) 5 - 10 mg PO .Q1-2H PRN PRN Reason: ALCOHOL WITHDRAWAL Enoxaparin Sodium (Lovenox) 40 mg SQ DAILY [facility] Fluticasone Propionate (Flonase) 1 spray NA DAILY [facility] Stop: 10/25/17 13:00 Last Admin: 10/24/17 11:41 Dose: 1 spray Folic Acid () 1 mg PO DAILY [facility] Stop: 10/28/17 10:01 Sodium Chloride () 1,000 mls @ 30 mls/hr IV .Q24H [facility] Last Admin: 10/24/17 14:35 Dose: 30 mls/hr Lorazepam (Ativan) 1 - 2 mg IV .Q1-2H PRN PRN Reason: ALCOHOL WITHDRAWAL Lorazepam (Ativan) 2 mg IM NOW PRN PRN Reason: SEIZURE Lorazepam (Ativan) 2 mg IV NOW PRN PRN Reason: SEIZURE Metoprolol Tartrate (Lopressor) 12.5 mg PO BID [facility] Multivitamins/Minerals (Centrum) 1 tab PO DAILY [facility] AMI Plan - Labs Result Diagrams: 10/24/17 07:29 10/24/17 07:29
[2017-10-25] MEDS ORDERED: CYANOCOBALAMIN (VITAMIN B-12) 100 MCG TABLET PO SCH (10:00)
[2017-10-25] MEDS ORDERED: FOLIC ACID 1 MG TABLET PO SCH (10:00)
[2017-10-25] MEDS ORDERED: ENOXAPARIN 40 MG/0.4 ML SYR SQ SCH (10:00)
[2017-10-25] MEDS ORDERED: METOPROLOL TART 25 MG TABLET PO SCH (10:00)
[2017-10-25] MEDS ORDERED: MULTIVITAMINS/MINERALS TABLET PO SCH (10:00)
--- NOTE | 2017-10-25 10:35 | Discharge Summary ---
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 lens coating technician?: Not Established 10/24/17 17:07 Consult - Case Management Now Comment: Reason For Exam: Alcohol Withdrawal Physical Exam - Vital Signs Vital Signs: Vital Signs - Last 24 Hrs Temp Pulse Pulse Resp BP Pulse Ox 10/25/17 07:53 97.8 F 75 18 148/88 94 L 10/25/17 04:00 74 18 137/77 97 10/25/17 00:00 82 18 133/84 97 10/24/17 21:00 72 66 18 10/24/17 20:00 98.6 F 66 18 120/79 93 L 10/24/17 16:19 164/103 10/24/17 15:15 180/99 10/24/17 14:15 68 68 18 187/115 - General General Appearance: Oriented x3, Cooperative, No acute distress Limitations: No limitations - Head Head exam: Atraumatic - Eye Eye exam: Normal appearance, PERRL, EOMI. negative: Nystagmus, Periorbital tenderness Pupils: Normal accommodation - ENT ENT exam: Mucous membranes moist, TM's normal bilaterally (bilateral wax, left TM effusion, right TM obstructed by wax) Nasal Exam: Other (hypertrophic, red turbinates) Mouth exam: Normal external inspection Throat exam: Normal inspection - Neck Neck exam: Normal inspection, Full ROM. negative: Lymphadenopathy, Tenderness - Respiratory Respiratory exam: Normal lung sounds bilaterally. negative: Rales, Respiratory distress, Rhonchi, Wheezes - Cardiovascular Cardiovascular Exam: Regular rate, Normal rhythm. negative: Irregular rhythm, Systolic murmur Peripheral Pulses: 2+: Radial (R), Radial (L), Dorsalis Pedis (R), Dorsalis Pedis (L) - GI/Abdominal GI/Abdominal exam: Soft, Normal bowel sounds. negative: Guarding, Rebound, Tenderness - Rectal Rectal exam: Deferred - exam: Deferred - Extremities Extremities exam: Normal inspection, Tenderness (right ankle/foot- fx 1 yr ago ( slow healing)). negative: Joint swelling, Pedal edema - Neurological Neurological exam: Alert, CN II-XII intact, Oriented X3. negative: Motor sensory deficit - Psychiatric Psychiatric exam: Normal affect, Normal mood - Skin Skin exam: Normal color Hospitalization - Hospitalization Admission Diagnosis: dizziness with diaphoresis - Problem List/Discharge Diagnosis (1) Dizziness of unknown cause Current Visit: Yes Status: Resolved Base Code: R42 - DIZZINESS AND GIDDINESS Comment: 10/24/17 -NSR tele, EKG negative -negative head CT other than sinusisit -labs WNL, trop negative-one remains -asymptomatic this AM 10/25/17 -cleared by cardiac consult Dr Feliz -asymptomatic since admission -negative trop series (2) Diaphoresis Current Visit: Yes Status: Resolved Base Code: R61 - GENERALIZED HYPERHIDROSIS Comment: 10/24/17 -no issues since arrival to the floor 10/25/17 -asymptomatic since admission (3) Vomiting Current Visit: Yes Status: Resolved Base Code: R11.10 - VOMITING, UNSPECIFIED Comment: 10/24/17 -no issues since arrival to the floor 10/25/17 - (4) Right calcaneal fracture Current Visit: No Status: Chronic Discharge Diagnosis: Encounter type: initial encounter Calcaneus location: unspecified portion of calcaneus Fracture type: closed Fracture alignment: displaced Qualified Code(s): S92.001A - Unspecified fracture of right calcaneus, initial encounter for closed fracture Base Code: S92.001A - UNSP FRACTURE OF RIGHT CALCANEUS, INIT FOR CLOS FX Comment: 10/24/17 -Pt has seen Dr Temple, has been release from care -slow healing, no other interventions ordered -denies boot, or walking shoe orders -s/p fall 1 yr ago (5) Full code status Current Visit: Yes Status: Acute Base Code: Z78.9 - OTHER SPECIFIED HEALTH STATUS Comment: 10/24/17 full code status (6) Headache Current Visit: Yes Status: Resolved Base Code: R51 - HEADACHE Comment: -1430 pt had sudden onset of TERRY and elevated BP, rapid response was activated -pt given 1mg ativan IVP and clonidine 0.1mg x2 (by Dr magana during rapid response) -mild effective for TERRY and BP - pt given TERRY cocktail of Benadryl 25mg IVP, toradol 30mg IVP, solumedrol 125mg IVP that resolved TERRY but BP and HR remained elevated, given metroprolol 12.5mg PO and BP/HR controlled 10/25/17 -pt has cardiac clearence from Cardiology, allowed coffee this AM -reports TERRY free with slightly elevated BP/HR, repeated metorolol 12.5mg -will dispo with metorprolol 12.5mg PO BID and f/u with new PCP in 2 weeks (7) Hypertension Current Visit: Yes Status: Acute Base Code: I10 - ESSENTIAL (PRIMARY) HYPERTENSION Comment: 10/24/17 -pt had elevated BP requiring medication of clonidine 0.1mg x2 and metoprolol 12.5mg 10/25/17 -pt Bp and HR elevated again in the AM, medicated with metorpolol 12.5mg to control both -tolerating well -will continue at D/C and will give RX to continue for f/u with PCP - Hospitalization Course Disposition: Home, Self-Care Hospital Course: 62 to male admitted obs for 2 events of diaphoresis, dizziness, and vomiting. PMH limited, pt denies primary care or health management outpt. Former smoker, quit 20 years ago, daily ETOH use 3-4 beers daily but recent increase to up to 12 daily since son has been [place] from [place]. Denies alcoholism. Pt denies any current or chronic issues other than a URI that has turned into sinus issues causing congestion, nasal drainage, and pressure for the past week. Pt presented to ER via private care with . Reporting that he as on a swing, felt instantly dizzy, became diaphoretic, vomited and when down to his knees from the swing. Event was temporary, brought in to ER under his own power. Denies CP or any other radiating pain at that time. Another repeat event happened in ER, provider reported NSR on monitor but pt appeared in distress, diaphoretic and pale. Resolved on its own but remained for ACS r/o. BP 187/107, HR 81, RR 20, 96% RA, 98F WBC 9.7, hgb 15.1, Hct 43.6, plt 225 Na146, K 4, Cl 100, Cos 24, BUN 16, creatinine 1, GFR >60 1545, 2250, 0729 trop <0.010 trig 299 KDK 118m HDL 30, (total 189) EKG NSR CT head- negative for acute process, chronic sinusitis noted Card referral this afternoon Pt was medicated with IVP Benadryl 50mg, zofran 8mg IVP, ASA 81mg, and IVF NS at 75/hr. 10/24/17 Pt is asymptomatic other than continued complaints of sinus pressure and congestion. VSS through the night. Pt is A&Ox4. POC, last trop at 1500, Dr Feliz to see pt this afternoon. If negative cardiac concerns, dispo today with f/u new PCP, to be coordinated before dispo. Starting Flonase to decrease sinus complaints. 1430 rapid response called, pt was found to have sudden onset migraine with secondary hypertension. Pt reports having similar migraines 3 times in his life , related to stressful situations. Dr magana from ER managed RR, gave 0.1mg clonidine PO and 1mg ativan IVP. NIH negative, a&ox4. 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 BP still elevated, Dr Magana gave orders for repeat clonidine 0.1mg PO. Pt reports TERRY 5/ 10 after medications. 1600 Pt given toradol 30mg and solumedrol 125mg IVP for remaining headache cocktail. 1900 Pt is TERRY free but remains hypertensive with elevated HR high 90s sustained NSR (per nursing report). Metoprolol 12.5mg PO now ordered given, repeat BP HR in 1 hour. PCP none Procedures: Imaging and X-Rays 10/23/17 15:59 CHEST 2 VIEWS [RAD] Stat 10/23/17 16:01 HEAD WO CONTRAST [CT] Stat Cardiology Procedures 10/23/17 15:59 Pump Operator Byproducts NOW EKG NOW 10/23/17 19:48 Pump Operator Byproducts .Continuous EKG QDX2@0600 Abnormal Labs: Abnormal Lab Results 10/23/17 10/23/17 10/24/17 Range/Units 15:45 15:45 07:29 MCV 97.5 H (81-97) fl MCH 33.8 H (27-33) pg Monocytes % 9.1 H (0-9) % Sodium 146 H (136-145) mmol/L Anion Gap 22.0 H (7-16) Random Glucose 126 H (74-109) mg/dL Triglycerides 299 H (<150) mg/dL LDL Cholesterol [place] 118.0 H (0-100) mg/dL HDL Cholesterol 30 L (40-60) mg/dL 10/24/17 10/24/17 Range/Units 07:29 07:29 MCV 97.8 H (81-97) fl MCH 33.8 H (27-33) pg Monocytes % 9.6 H (0-9) % Sodium (136-145) mmol/L Anion Gap (7-16) Random Glucose 112 H (74-109) mg/dL Triglycerides (<150) mg/dL LDL Cholesterol [place] (0-100) mg/dL HDL Cholesterol (40-60) mg/dL Condition at Discharge: (2) Stable Discharge Diagnosis: Chronic sinusitis, migraine, hypertension Discharge Medications - Discharge Medications Prescriptions: Fluticasone Propionate [Flonase] 1 spray NA DAILY #1 btl Metoprolol Tartrate [Lopressor] 12.5 mg PO BID 30 Days #30 tab Home Medications: Ambulatory Orders Hydrocodone/Acetaminophen [[place] 5mg/325mg] 1 - 2 each PO .EVERY 4-6 HRS PRN # 20 tablet 09/07/16 [Last Taken Unknown] Acetaminophen [Tylenol 500Mg Tab] 1,000 mg PO Q8H PRN tablet 10/25/17 [Last Taken Unknown] Aspirin Enteric-Coated [Ecotrin (EC)] 81 mg PO DAILY tabec 10/25/17 [Last Taken Unknown] Fluticasone Propionate [Flonase] 1 spray NA DAILY #1 btl 10/25/17 [Last Taken Unknown] Metoprolol Tartrate [Lopressor] 12.5 mg PO BID 30 Days #30 tab 10/25/17 [Last Taken Unknown] Discharge Plan - Discharge Instructions Activity at Discharge: Increase Activity as Tolerated Diet at Discharge: Low Fat, Low Cholesterol Additional Instructions: Follow up appointment has been scheduled with Tiny Larsen at [facility] on November 11, 2017 at 10:20. Please bring new patient paperwork with you to your appointment. We have diagnosed you with hypertension (elevated blood pressure). Since your heart rate was also slightly elevated we have started metoprolol 12.5mg twice a day. Stop the medication if you are dizzy or lightheaded. Please try and check your blood pressure at home while you are waiting to see me at your hospital follow up and new pt appointment. You had a migraine while you were inpatient. We gave you benadryl, toradol, solumedrol, and metoprolol. Continue to use your flonase spray to control the chronic sinus issue seen on your ct of the head. Try to eat a low salt, low fat diet as your cholesterol was also elevated. We will address this at your follow up visit. Quality Measures - Quality Measures Quality Measures: Documentation of Current Medications in Medical Record, Screening for High Blood Pressure and F/U Documented - Current Medications Quality Measure: Measure #130: Documentation of Current Medications Documentation of Current Medications: <Current Medications Documented/Reviewed> [G8427] - Blood Pressure Screening Quality Measure: Screening for High Blood Pressure and Follow-Up Documented Does Patient Have Any of the Following: No Blood Pressure Classification: Hypertensive Reading Systolic Measurement: 187 Diastolic Measurement: 107 Screening for High Blood Pressure: < First Hypertensive BP, F/U Documented > [ G8950] First Hypertensive Follow-up Interventions: Lifestyle modifications., Referral to alternative/primary care provider. Lifestyle Modification: Dietary Approaches to Stop Hypertension (DASH) Eating Plan, Moderation in alcohol (ETOH) consumption - Elder Abuse Suspicion Index EASI Reference Information: Mina PEREZ, Rosalio C, Augustus Silva, Alejandro Vegas.Development and validation of a tool to assist physicians identification of elder abuse: The Elder Abuse Suspicion Index (EASI ). Journal of Elder Abuse and Neglect, 2008; 20 (3): 276-300.
[2017-10-25] MEDS: ASPIRIN 81 MG TABEC PO SCH (10:50)
[2017-10-25] MEDS: FLUTICASONE PROPIONATE 50MCG NASAL 16 GM BTL SCH (10:51)
[2017-10-25] MEDS: THIAMINE MONONITRATE 100 MG TABLET PO SCH (10:53)
--- NOTE | 2017-10-25 13:36 | RADIOLOGY REPORT ---
CLINICAL HISTORY: Sudden onset of confusion. Profuse sweating prior to arrival. TECHNIQUE: PA and lateral views of the chest. COMPARISON: None. FINDINGS: The heart is not enlarged. No pulmonary venous hypertension is seen. The aortic valve is atherosclerotic. The lungs and pleural spaces are clear. There are mild degenerative endplate changes scattered within the visualized spine. IMPRESSION: 1. No radiographic evidence of acute cardiopulmonary disease. 2. Atherosclerotic calcification of the aortic valve. MTDD
--- NOTE | 2017-10-25 16:13 | CT SCAN REPORT ---
STUDY: CT of the head without contrast. CRITICAL HISTORY: Sudden onset of confusion with profuse sweating prior to arrival. TECHNIQUE: Routine non-contrast CT examination of the head. COMPARISON: No prior imaging of the head available for comparison. FINDINGS: On the ventricle exam, subarachnoid spaces are normal in size. There are prominent perivascular spaces versus old lacunar infarcts within the right caudate nucleus head and anterior limb of the right internal capsule. No other area of abnormally increased or decreased attenuation is noted throughout the brain substance. No abnormal extraaxial fluid collection is seen. There is minor atherosclerosis of the distal right vertebral artery and at least mild atherosclerotic calcification of the distal internal carotid arteries. No asymmetric density of the middle cerebral arteries. There is mucosal thickening scattered throughout the majority of paranasal sinuses without air fluid levels nor bone destruction consistent with chronic sinusitis. The mastoid air cells are clear. Post-cataract surgery changes are suggested bilaterally. The orbits as visualized are otherwise unremarkable. IMPRESSION: 1. No CT evidence of acute major muscle infarct, intracranial hemorrhage nor mass. 2. Prominent perivascular spaces versus old lacunar infarcts within the right caudate nucleus head and right internal capsule. 3. Chronic-appearing inflammatory changes throughout the majority of paranasal sinuses. MTDD
== END 2017-10-25 13:00 | disposition home or self-care (01) ==
LOC: ER 15:31 → MEDSURG 19:36
PROVIDERS: ADMIT Internal Medicine; ATTEND Internal Medicine
DX: R61 Generalized hyperhidrosis (principal); R11.10 Vomiting, unspecified; R51 Headache; I10 Essential (primary) hypertension; E78.00 Pure hypercholesterolemia, unspecified; M19.90 Unspecified osteoarthritis, unspecified site; Z87.891 Personal history of nicotine dependence
CPT/HCPCS: 70450; 71046; 80053; 80061; 80305; 80320; 84484; 85025; 85379; 85610; 85730; 93005; 93010; 94760; 96361; 96374; 96375; 99220; 99226; 99231; 99285; J1200; J1885; J2405; J2930

== ENCOUNTER 2018-07-08 09:25 | Emergency (ER) | payer BC ==
--- NOTE | 2018-07-08 09:47 | Emergency Department Record ---
History of Present Illness - General Chief complaint: Male Urogenital Problem Stated complaint: SWOLLEN TESTICLE Time Seen by Provider: 07/08/18 09:41 Source: Patient Mode of Arrival: Ambulatory Limitations: No limitations - History of Present Illness Initial comments: 62 yo male presents with three days of gradual onset progressive left testicle pain. He has swelling associated as well. No fevers, chills, or dysuria. He denies any similar history in the past. No warmth or redness. No urinary retention. He does take flow max for mild changes in his urinary flow in the last year. He does not see a urologist. PCP Tiny Verduzco MD Complaint: Testicle pain (Left) -: Days(s) (3) Location: Left testicle Radiation: None Severity: Moderate Quality: Aching Consistency: Constant Improves with: Rest Worsens with: Movement, Palpation Reports: Denies other symptoms - Related Data Previous Rx's Medication Instructions Recorded Levofloxacin [Levaquin] 750 mg PO DAILY #10 tab 07/08/18 Allergies Allergy/AdvReac Type Severity Reaction Status Date / Time codeine Allergy Hallucinati Verified 07/08/18 09:48 ons Review of Systems Constitutional: Denies: Chills, Fever, Malaise, Weakness Eyes: Denies: Eye discharge, Eye pain, Photophobia, Vision change ENT: Reports: Congestion. Denies: Throat pain Respiratory: Reports: Cough Cardiovascular: Denies: Chest pain, Syncope Endocrine: Denies: Fatigue Gastrointestinal: Denies: Abdominal pain, Diarrhea, Nausea, Vomiting Genitourinary: Reports: As per HPI, Testicular pain. Denies: Discharge, Dysuria , Frequency, Hematuria, Incontinence, Retention, Testicular mass, Urgency Musculoskeletal: Denies: Arthralgia, Back pain, Neck pain Skin: Denies: Bruising, Change in color, Rash Neurological: Denies: Headache Psychiatric: Denies: Anxiety Hematological/Lymphatic: Denies: Blood Clots, Easy bleeding, Easy bruising, Swollen glands Past Medical History - SOCIAL HISTORY Smoking Status: Former smoker Alcohol Use Comment: regular use Drug Use: None - RESPIRATORY Hx Respiratory Disorders: No - CARDIOVASCULAR Hx Cardio Disorders: Yes Hx Hypertension: Yes Comment:: high cholesterol - NEURO Hx Neuro Disorders: No - GI Hx GI Disorders: No - Hx Genitourinary Disorders: No - ENDOCRINE Hx Endocrine Disorders: No - MUSCULOSKELETAL Hx Musculoskeletal Disorders: Yes Hx Arthritis: Yes - PSYCH Hx Psych Problems: Yes Hx Anxiety: Yes - HEMATOLOGY/ONCOLOGY Hx Hematology/Oncology Disorders: No Family Medical History Family Hx Comment (NOT TO BE USED IN PLACE OF ITEMS BELOW): alzheimers, HTN Hx Dementia: Father Hx Stroke: Mother Physical Exam - General General Appearance: Alert, Oriented x3, Cooperative, No acute distress Limitations: No limitations - Head Head exam: Atraumatic, Normocephalic, Normal inspection - Eye Eye exam: Normal appearance, PERRL. negative: Conjunctival injection, Scleral icterus - ENT ENT exam: Normal exam, Mucous membranes moist, Normal orophraynx Ear exam: Normal external inspection Nasal Exam: Normal inspection Mouth exam: Normal external inspection - Neck Neck exam: Normal inspection - Respiratory Respiratory exam: Normal lung sounds bilaterally. negative: Respiratory distress - Cardiovascular Cardiovascular Exam: Regular rate, Normal rhythm, Normal heart sounds - GI/Abdominal GI/Abdominal exam: Soft. negative: Distended, Guarding, Tenderness - Rectal Rectal exam: Deferred - exam: Scrotal swelling (Mild left sided swelling without redness or abnormal warmth), Testicular tenderness. negative: Circumcision, Normal inspection, Urethral discharge - Extremities Extremities exam: Normal inspection - Back Back exam: Denies: CVA tenderness (R), CVA tenderness (L) - Neurological Neurological exam: Alert, Oriented X3 - Psychiatric Psychiatric exam: Normal affect, Normal mood. negative: Agitated, Anxious - Skin Skin exam: Dry, Intact, Normal color, Warm Course - Reevaluation(s) Reevaluation #1: 07/08/18 10:23 No significant changes on the CBC, CMP or CRP 07/08/18 11:20 UA is negative 07/08/18 12:34 The patient US is consistent with epididymitis. Normal flow. He will be prescribed antibiotics, referral back to his PCP for a recheck 07/08/18 12:38 I updated his provider Dionna Larsen NP of the results. She will follow up in the office and refer to urology if necessary Medical Decision Making - Lab Data Result diagrams: 07/08/18 09:50 07/08/18 09:41 Disposition Disposition: Discharge Clinical Impression: Epididymitis Disposition: Home, Self-Care Condition: (1) Good Instructions: Epididymitis (ED) Additional Instructions: Call your doctor for the next available follow up appointment Wear supportive underwear and avoid over activity Return to the ER for a recheck if worse, any new concerns or questions Take the prescriptions provided as directed Review this ER visit and the tests performed with your family doctor Prescriptions: Levofloxacin [Levaquin] 750 mg PO DAILY #10 tab Forms: Patient Portal Access Time of Disposition: 12:38 Quality - Quality Measures Quality Measures: N/A - Blood Pressure Screening Does Patient Have Any of the Following: Active Dx of HTN Blood Pressure Classification: Hypertensive Reading Systolic Measurement: 158 Diastolic Measurement: 90 Screening for High Blood Pressure: Patient Exclusion, Hx of HTN [G9744]
[2018-07-08 10:03] LABS: BASO % 0.3 % (0-6); EOS % 1.8 % (0-6); GRAN % 59.3 % (47-80); HEMATOCRIT 43.1 % (42.0-52.0); HEMOGLOBIN 15.7 gm/dl (14.0-18.0); LYMPH % 27.9 % (16-45); MEAN CELL VOLUME 95.6 fl (81-97); MEAN CORPUSCULAR HEMOGLOBIN 34.8 pg (27-33); MEAN CORPUSCULAR HGB CONC 36.4 g/dl (32-36); MEAN PLATELET VOLUME 9.9 fl (7.4-10.4); MONO % 10.7 % (0-9); PLATELET COUNT 231 K/uL (130-400); RED BLOOD COUNT 4.51 M/uL (4.40-5.70); RED CELL DISTRIBUTION WIDTH 12.8 % (11.5-14.5); WHITE BLOOD COUNT W/O DIFF 10.3 K/uL (4.2-12.2)
[2018-07-08 10:14] LABS: BLOOD UREA NITROGEN 17 mg/dL (8-23)
[2018-07-08 10:15] LABS: EST GLOMERULAR FILTRATION RATE > 60 mL/min
[2018-07-08 10:17] LABS: GLUCOSE,RANDOM 139 mg/dL (74-109)
[2018-07-08 10:20] LABS: C-REACTIVE PROTEIN 0.28 mg/dL (<0.5)
[2018-07-08 10:49] LABS: URINE APPEARANCE CLEAR; URINE BILIRUBIN NEGATIVE (NEGATIVE); URINE BLOOD SMALL (NEGATIVE); URINE COLOR YELLOW; URINE GLUCOSE (UA) NEGATIVE (NEGATIVE); URINE KETONE NEGATIVE (NEGATIVE); URINE LEUKOCYTE ESTERASE NEGATIVE (NEGATIVE); URINE NITRITE NEGATIVE (NEGATIVE); URINE PROTEIN NEGATIVE (NEGATIVE); URINE UROBILINOGEN 0.2 E.U./dL (0.20 - 1.00)
[2018-07-08 11:01] LABS: URINE BACTERIA NONE SEEN; URINE EPITHELIAL CELLS 0 - 2 (FEW); URINE RBC 0 - 2 (NONE SEEN); URINE WBC 0 - 2 (0-2/hpf)
== END 2018-07-08 12:45 | disposition home or self-care (01) ==
LOC: ER 09:25
DX: N45.1 Epididymitis (principal); I10 Essential (primary) hypertension; Z87.891 Personal history of nicotine dependence
CPT/HCPCS: 76870; 80048; 81001; 85025; 86140; 99283; 99284

== ENCOUNTER 2019-03-16 16:10 | Observation (INO) | payer BC ==
--- NOTE | 2019-03-16 16:52 | Emergency Department Record ---
History of Present Illness - General Chief complaint: Nausea, Vomiting, Diarrhea Stated complaint: VOMITING,DIARRHEA,CHILLS Time Seen by Provider: 03/16/19 16:51 Source: Patient Mode of Arrival: Ambulatory Limitations: No limitations - History of Present Illness Initial comments: The patient is here due to a 10 hour hx of frequent nausea, then vomiting and loose watery stools. He has had many episodes since the onset this AM. The patient denies any significant abdominal pain, or any fever, dysuria, or lower back pain. He also has had R chest and upper back aching since Sunday 2 days ago when he pulled a deer out of the tinaj[place] by himself. There is no L sided CP, SOB or sweating. The patient's only abdominal surgery is an Appendectomy and "stomach lining removal". MD complaint: Diarrhea, Nausea, Vomiting Onset/Timin -: Hour(s) Description of Vomiting: Watery Description of Diarrhea: Water Associated Abdominal Pain: No Radiation: Back Severity scale (1-10): 7 Quality: Aching Consistency: Constant Improves with: None Worsens with: None, Vomiting Associated Symptoms: Fever/chills, Headaches - Related Data Home Medications Medication Instructions Recorded Confirmed Last Taken Atorvastatin Calcium 40 mg PO QHS 03/17/19 03/17/19 Unknown Lisinopril 20 mg PO DAILY 03/17/19 03/17/19 Unknown Tamsulosin HCl [Flomax] 0.4 mg PO QHS 03/17/19 03/17/19 Unknown Allergies Allergy/AdvReac Type Severity Reaction Status Date / Time codeine Allergy Hallucinati Verified 03/16/19 20:59 ons Travel Screening - Travel/Exposure Within Last 30 Days Have you traveled within the last 30 days?: No - Travel/Exposure Within Last Year Have you traveled outside the [place] in the last year?: No - Additonal Travel Details Have you been exposed to anyone with a communicable illness?: No - Travel Symptoms Symptom Screening: None Review of Systems Constitutional: Denies: Chills, Fever Eyes: Denies: Eye discharge ENT: Denies: Congestion Respiratory: Denies: Cough, Dyspnea Cardiovascular: Denies: Arrhythmia, Dyspnea on exertion Endocrine: Denies: Fatigue Gastrointestinal: Reports: Diarrhea, Nausea, Vomiting. Denies: Abdominal pain Genitourinary: Denies: Dysuria Musculoskeletal: Denies: Arthralgia Skin: Denies: Bruising Past Medical History - SOCIAL HISTORY Smoking Status: Former smoker Alcohol Use: Heavy Drug Use: None - RESPIRATORY Hx Respiratory Disorders: No - CARDIOVASCULAR Hx Cardio Disorders: Yes Hx Hypertension: Yes Comment:: high cholesterol - NEURO Hx Neuro Disorders: No - GI Hx GI Disorders: No - Hx Genitourinary Disorders: No Hx UTI: Yes - ENDOCRINE Hx Endocrine Disorders: No - MUSCULOSKELETAL Hx Musculoskeletal Disorders: Yes Hx Arthritis: Yes - PSYCH Hx Psych Problems: Yes Hx Anxiety: Yes - HEMATOLOGY/ONCOLOGY Hx Hematology/Oncology Disorders: No Family Medical History Any Significant Family History?: Yes Family Hx Comment (NOT TO BE USED IN PLACE OF ITEMS BELOW): alzheimers, HTN Hx Dementia: Father Hx Stroke: Mother Physical Exam - General General Appearance: Alert, Oriented x3, Cooperative, No acute distress - Head Head exam: Atraumatic, Normocephalic - Eye Eye exam: Normal appearance, PERRL - ENT Throat exam: Normal inspection. negative: Tonsillar erythema, Tonsillar exudate - Neck Neck exam: Normal inspection, Full ROM. negative: Tenderness - Respiratory Respiratory exam: Normal lung sounds bilaterally, Chest wall tenderness (The R sided CP is 100% reproducible to palpation of the R chest wall and R upper back. ). negative: Respiratory distress - Cardiovascular Cardiovascular Exam: Regular rate, Normal rhythm, Normal heart sounds - GI/Abdominal GI/Abdominal exam: Soft, Normal bowel sounds. negative: Rebound, Rigid, Tenderness - Extremities Extremities exam: Normal inspection, Full ROM, Normal capillary refill. negative: Calf tenderness, Pedal edema, Tenderness - Back Back exam: Reports: Normal inspection, Paraspinal tenderness (R upper thoracic paraspinal.). Denies: Vertebral tenderness - Neurological Neurological exam: Alert. negative: Motor sensory deficit Course Vital Signs 03/16/19 16:41 Temperature 98.9 F Pulse Rate 106 H Respiratory 20 Rate Blood Pressure 180/99 Pulse Ox 97 - Reevaluation(s) Reevaluation #1: The patient is doing a lot better at this time. His nausea and abdominal cramping have resolved. On exam the abdomen is very soft and nontender in all 4 quads. 03/16/19 19:09 Reevaluation #2: The patient's 2nd UA actually appears significantly worse than the first. I am concerned the patient has a kidney infection due to the high WBC and infected urine. I did recommend a short stay admission and the patient did agree to the plan. I also did discuss the case with Dr. Jacob and he did accept the admission. 03/16/19 19:31 Medical Decision Making - Data Complexity MDM Data: Labs Ordered and/or Reviewed, X-Ray Ordered and/or Reviewed, EKG Ordered and/or Reviewed - Lab Data Result diagrams: 03/17/19 06:25 03/17/19 06:25 - EKG Data -: EKG Interpreted by Me EKG: No Acute Changes, Normal EKG - Radiology Data Radiology results: Report reviewed (CT: Neg for acute surgical abnormalities. Non-dilated small bowel with air and fluid prob due to recent enteritis.) Disposition Disposition: Admit Clinical Impression: Vomiting and diarrhea, Pyelonephritis, acute Disposition: Still a Patient at [facility] Decision to Admit: Admit from ER Decision to Admit Date: 03/16/19 Decision to Admit Time: 19:33 Accepting Physician: Nidia Time Discussed w/Accepting Physician: 19:33 Condition: (2) Stable Time of Disposition: 19:33 Quality - Quality Measures Quality Measures: N/A - Blood Pressure Screening View Details: Yes Does Patient Have Any of the Following: Active Dx of HTN Blood Pressure Classification: Hypertensive Reading Systolic Measurement: 180 Diastolic Measurement: 99 Screening for High Blood Pressure: Patient Exclusion, Hx of HTN [G9744]
[2019-03-16] MEDS ORDERED: 0.9 % SODIUM CHLORIDE 1,000 ML BAG IV ONE (16:55)
[2019-03-16] MEDS ORDERED: ONDANSETRON HCL IV 4 MG/2 ML VIAL IV ONE (16:55)
[2019-03-16] MEDS ORDERED: ACETAMINOPHEN 1,000 MG/100 ML BTL IVPB ONE (16:55)
[2019-03-16 17:04] LABS: ABSOLUTE NEUTROPHIL COUNT 17.29; BASO % 0.1 % (0-6); HEMATOCRIT 46.3 % (42.0-52.0); LYMPH % 3.1 % (16-45); MEAN CELL VOLUME 96.1 fl (81-97); MEAN CORPUSCULAR HEMOGLOBIN 33.2 pg (27-33); MEAN CORPUSCULAR HGB CONC 34.6 g/dl (32-36); MONO % 3.1 % (0-9); PLATELET COUNT 234 K/uL (130-400); RED BLOOD COUNT 4.82 M/uL (4.40-5.70); RED CELL DISTRIBUTION WIDTH 12.9 % (11.5-14.5); WHITE BLOOD COUNT W/O DIFF 18.4 K/uL (4.2-12.2)
[2019-03-16 17:37] LABS: URINE APPEARANCE CLEAR; URINE BILIRUBIN NEGATIVE (NEGATIVE); URINE BLOOD SMALL (NEGATIVE); URINE COLOR YELLOW; URINE GLUCOSE (UA) NEGATIVE (NEGATIVE); URINE KETONE NEGATIVE (NEGATIVE); URINE NITRITE NEGATIVE (NEGATIVE); URINE PROTEIN NEGATIVE (NEGATIVE); URINE UROBILINOGEN 0.2 E.U./dL (0.20 - 1.00)
[2019-03-16 17:52] LABS: URINE LEUKOCYTE ESTERASE TRACE (NEGATIVE)
[2019-03-16 18:00] LABS: BLOOD UREA NITROGEN 15 mg/dL (8-23); EST GLOMERULAR FILTRATION RATE > 60 mL/min
[2019-03-16 18:01] LABS: LIPASE 14 U/L (13-60); TOTAL PROTEIN 7.7 g/dL (6.6-8.7)
[2019-03-16 18:03] LABS: GLUCOSE,RANDOM 135 mg/dL (74-109)
[2019-03-16 18:06] LABS: ALBUMIN 4.8 g/dL (4.0-5.0); ALKALINE PHOSPHATASE 70 U/L (40-129); ALT/SGPT 12 U/L (<41); AST/SGOT 29 U/L (10.0-50.0)
[2019-03-16 18:14] LABS: BILIRUBIN,DIRECT < 0.2 mg/dL (0-0.3)
[2019-03-16] MEDS ORDERED: KETOROLAC 30 MG/ML VIAL IVP ONE (18:19)
--- NOTE | 2019-03-16 19:01 | CT SCAN REPORT ---
EXAMINATION: CT Abdomen and Pelvis without IV Contrast EXAM DATE: 03/16/2019 6:51 PM TECHNIQUE: Standard protocol CT imaging of the abdomen and pelvis was performed without intravenous c ontrast. INDICATION: Flank pain COMPARISON: None ENCOUNTER: Not applicable CT ABDOMEN AND PELVIS FINDINGS: Lung Bases: Included extent of the lung bases are clear. Hepatobiliary: The liver has a normal size with a smooth surface. There is no biliary dilatation and the gallbladder is unremarkable. Pancreas: Mild fatty infiltration. Spleen: The spleen is not enlarged. Adrenals: The adrenal glands are normal. Kidneys, Ureters, & Bladder: Both kidneys have a normal size and morphology. There is no hydronephro sis. No renal calculi are present. Both ureters have a normal course and caliber and the urinary blad sridevi a normal morphology and uniform wall thickness. No ureteral or bladder calculi are identified. Gastrointestinal: The stomach is mildly distended with some fluid and air. There is moderate fluid th roughout small bowel loops in the abdomen or pelvis with luminal diameter up to approximately 2.8 cm. There are multiple air-fluid levels. There is no obvious transition point identified. There is no carey wel wall thickening. There is intermixed air and stool in the colon. The appendix is not seen. Reproductive Organs: The prostate measures 4.7 cm in transverse dimension. Lymphatic System: There is no adenopathy within the abdomen or pelvis. Vasculature: Normal caliber abdominal aorta. There is mild to moderate atherosclerotic calcification in the aorta. Peritoneum: No free fluid, free air, or inflammation Abdominal wall & Musculoskeletal: There is a tiny fat-containing umbilical hernia. The abdominal wall musculature otherwise is intact. There is no hematoma or mass. There is mild disc bulging at a coupl e of the lower lumbar levels. There is no focal disc extrusion or clear evidence for compromise of th e exiting lumbar nerve roots. Alignment is preserved. There is no fracture or subluxation. Assessment of the solid organs, soft tissues, and vascular structures is overall limited on noncontra st imaging, IMPRESSION: 1. No evidence for acute posttraumatic abnormality in the abdomen or pelvis. 2. There is mild to moderate fluid and air throughout nondilated small bowel loops in the pelvis. No obvious transition point or other evidence for obstruction. Findings could relate to an incidental en teritis or possibly mild small bowel ileus. 3. There is no urinary tract calculus or obstructive uropathy. Dictated by: Rainer Manley MD on 03/16/2019 6:52 PM. .
[2019-03-16 19:12] LABS: URINE APPEARANCE CLEAR; URINE BILIRUBIN NEGATIVE (NEGATIVE); URINE BLOOD SMALL (NEGATIVE); URINE COLOR YELLOW; URINE GLUCOSE (UA) NEGATIVE (NEGATIVE); URINE KETONE NEGATIVE (NEGATIVE); URINE LEUKOCYTE ESTERASE MODERATE (NEGATIVE); URINE NITRITE NEGATIVE (NEGATIVE); URINE PROTEIN NEGATIVE (NEGATIVE); URINE UROBILINOGEN 0.2 E.U./dL (0.20 - 1.00)
[2019-03-16 19:21] LABS: URINE BACTERIA FEW; URINE EPITHELIAL CELLS 0 - 2 (FEW); URINE WBC 21 - 35 (0-2/hpf)
[2019-03-16] MEDS ORDERED: CEFTRIAXONE 1GM/50ML BAG 1 GM/50 ML BAG IVPB ONE (19:26)
[2019-03-16] MEDS ORDERED: CIPROFLOXACIN LACTATE/D5W 400 MG/200 ML BAG IVPB ONE (19:29)
[2019-03-16] MEDS ORDERED: HYDROMORPHONE HCL 2 MG/ML VIAL IVP ONE (19:36)
[2019-03-16] MEDS ORDERED: TAMSULOSIN HCL 0.4 MG CAP.ER.24H PO SCH (20:21)
[2019-03-16] MEDS ORDERED: ONDANSETRON HCL IV 4 MG/2 ML VIAL IVP PRN (20:21)
[2019-03-16] MEDS ORDERED: HYDROMORPHONE HCL 2 MG/ML VIAL IVP PRN (20:21)
[2019-03-16] MEDS ORDERED: LISINOPRIL 20 MG TABLET PO SCH (20:21)
[2019-03-16] MEDS ORDERED: KETOROLAC 30 MG/ML VIAL IVP PRN (20:21)
[2019-03-16] MEDS: CIPROFLOXACIN LACTATE/D5W 400 MG/200 ML BAG IVPB SCH (21:31)
[2019-03-16] MEDS: ACETAMINOPHEN 1,000 MG/100 ML BTL IVPB SCH (21:32)
[2019-03-16] MEDS: 0.9 % SODIUM CHLORIDE 1000ML 1,000 ML IV ONE (21:37)
[2019-03-16] MEDS: METOPROLOL TART 25 MG TABLET PO SCH (21:37)
[2019-03-17] MEDS: ACETAMINOPHEN 1,000 MG/100 ML BTL IVPB SCH ×2 (01:35→07:51)
[2019-03-17 06:31] LABS: ABSOLUTE NEUTROPHIL COUNT 5.98; BASO % 0.1 % (0-6); EOS % 0.2 % (0-6); GRAN % 72.9 % (47-80); HEMATOCRIT 39.5 % (42.0-52.0); HEMOGLOBIN 12.9 gm/dl (14.0-18.0); LYMPH % 16.5 % (16-45); MEAN CELL VOLUME 100.8 fl (81-97); MEAN CORPUSCULAR HEMOGLOBIN 32.9 pg (27-33); MEAN CORPUSCULAR HGB CONC 32.7 g/dl (32-36); MEAN PLATELET VOLUME 9.8 fl (7.4-10.4); MONO % 10.3 % (0-9); PLATELET COUNT 186 K/uL (130-400); RED BLOOD COUNT 3.92 M/uL (4.40-5.70); RED CELL DISTRIBUTION WIDTH 13.1 % (11.5-14.5); WHITE BLOOD COUNT W/O DIFF 8.2 K/uL (4.2-12.2)
[2019-03-17 06:43] LABS: CREATININE 1.3 mg/dL (0.7-1.2)
[2019-03-17] MEDS: CIPROFLOXACIN LACTATE/D5W 400 MG/200 ML BAG IVPB SCH (07:58)
[2019-03-17] MEDS: 0.9 % SODIUM CHLORIDE 1000ML 1,000 ML IV ONE (07:59)
[2019-03-17 09:46] LABS: INFLUENZA A NEGATIVE (NEGATIVE)
[2019-03-17 09:47] LABS: INFLUENZA B NEGATIVE (NEGATIVE)
[2019-03-17] MEDS ORDERED: LISINOPRIL 20 MG TABLET PO SCH (10:00)
[2019-03-17] MEDS: METOPROLOL TART 25 MG TABLET PO SCH (10:39)
--- NOTE | 2019-03-17 12:11 | Physician Progress Note ---
DVT/PE Assessment - Risk for VTE Risk for VTE: Yes Risk Level: Moderate Risk Assessment Date: 03/17/19 Risk Assessment Time: 12:11 VTE Orders Placed or Will Be Placed: Yes - Active Medicaitons Current Medications: Current Medications Atorvastatin Calcium (Lipitor) 40 mg PO QHS [facility] Ciprofloxacin (Cipro) 500 mg PO Q12HR [facility] Enoxaparin Sodium (Lovenox) 40 mg SQ DAILY [facility] Acetaminophen (Ofirmev) 1,000 mg in 100 mls @ 400 mls/hr IVPB Q6H [facility] Last Admin: 03/17/19 07:51 Dose: Not Given Documented by: Ketorolac Tromethamine (Toradol) 15 mg IVP Q8H PRN PRN Reason: PAIN - MODERATE (5-7) Lisinopril (Zestril) 20 mg PO DAILY [facility] Last Admin: 03/17/19 10:39 Dose: 20 mg Documented by: Metoprolol Tartrate (Lopressor) 12.5 mg PO BID [facility] Last Admin: 03/17/19 10:39 Dose: 12.5 mg Documented by: Ondansetron HCl (Zofran) 4 mg IVP Q6H PRN PRN Reason: NAUSEA Tamsulosin HCl (Flomax) 0.4 mg PO QHS [facility]
--- NOTE | 2019-03-17 12:11 | Discharge Summary ---
Providers Discharge Summary Date: 03/17/19 Date of admission: 03/16/19 20:01 Expected Date of Discharge: 03/17/19 Attending physician: MILKA REGALADO Primary care physician: Tiny Larsen N.P. Physical Exam - Vital Signs Vital Signs: Vital Signs - Last 24 Hrs Temp Pulse Pulse Resp BP BP Pulse Ox 03/17/19 05:54 97.7 F 65 20 111/64 96 03/17/19 01:31 97.9 F 03/17/19 00:06 99.5 F 92 H 20 140/79 96 03/16/19 20:21 97.9 F 85 20 158/93 96 03/16/19 19:22 82 16 139/77 97 03/16/19 17:49 89 105/63 97 03/16/19 16:41 98.9 F 106 H 20 180/99 97 - General General Appearance: Alert, Oriented x3, Cooperative, No acute distress Limitations: No limitations - Head Head exam: Atraumatic, Normocephalic - Eye Eye exam: Normal appearance, PERRL - ENT ENT exam: Normal exam, Mucous membranes moist, Normal external ear exam, Normal orophraynx, TM's normal bilaterally Ear exam: Normal external inspection. negative: External canal tenderness Nasal Exam: Normal inspection. negative: Discharge, Sinus tenderness Mouth exam: Normal external inspection, Tongue normal Throat exam: Normal inspection. negative: Tonsillar erythema, Tonsillar exudate - Neck Neck exam: Normal inspection, Full ROM. negative: Tenderness - Respiratory Respiratory exam: Normal lung sounds bilaterally, Chest wall tenderness (The R sided CP is 100% reproducible to palpation of the R chest wall and R upper back. ). negative: Respiratory distress - Cardiovascular Cardiovascular Exam: Regular rate, Normal rhythm, Normal heart sounds - GI/Abdominal GI/Abdominal exam: Soft, Normal bowel sounds. negative: Rebound, Rigid, Tenderness - Extremities Extremities exam: Normal inspection, Full ROM, Normal capillary refill. negative: Calf tenderness, Pedal edema, Tenderness - Back Back exam: Reports: Normal inspection, Paraspinal tenderness (R upper thoracic paraspinal.). Denies: Vertebral tenderness - Neurological Neurological exam: Alert. negative: Motor sensory deficit - Psychiatric Psychiatric exam: Normal affect, Normal mood - Skin Skin exam: Dry, Intact, Normal color, Warm Hospitalization - Hospitalization Admission Diagnosis: 1. Acute Gastroenteritis with Cystitis. - Problem List/Discharge Diagnosis (1) UTI (urinary tract infection) Current Visit: Yes Status: Acute Base Code: N39.0 - URINARY TRACT INFECTION, SITE NOT SPECIFIED Diagnosis Priority: Primary Comment: improving and not tox and will discharge on cipro 500 mg bid for 10 days (2) Pyelonephritis, acute Current Visit: Yes Status: Acute Base Code: N10 - ACUTE PYELONEPHRITIS Diagnosis Priority: Primary Comment: treating with cipro and cultures are pending and will have him follow up with Tiny Larsen his primary person ,10 days of cipro 500 mg BID (3) Vomiting and diarrhea Current Visit: Yes Status: Acute Base Code: R11.10 - VOMITING, UNSPECIFIED; R19.7 - DIARRHEA, UNSPECIFIED Diagnosis Priority: Primary Comment: resolved, his 3 year old relative had vomiting and diarrhea and he thinks he caught that (4) BPH (benign prostatic hyperplasia) Current Visit: Yes Status: Chronic Discharge Diagnosis: Lower urinary tract symptom presence: symptoms present Base Code: N40.0 - BENIGN PROSTATIC HYPERPLASIA WITHOUT LOWER URINRY TRACT SYMP Diagnosis Priority: Secondary Comment: follow up with urology on this problem - Disposition discharge home - Hospitalization Course Disposition: Home, Self-Care Hospital Course: Patient was feeling much better the next day without vomiting or diarrhea and ate a normal breakfast of eggs and toast. His urine shows signs of infection and the back pain is reproducible from pulling a deer out of the [place]aj[place]. Patient wants to go home and will have him add on tylenol for his pback pain 1000 mg every 6 hours and he already has votarin and will have continue with that. If he choose to take motrin he needs to stop the voltarin Procedures: Imaging and X-Rays 03/16/19 18:16 ABDOMEN/PELVIS WO CONTRAST [CT] Stat Cardiology Procedures 03/16/19 16:55 EKG NOW Abnormal Labs: Abnormal Lab Results 03/16/19 03/16/19 03/16/19 Range/Units 16:45 16:45 17:35 WBC 18.4 H (4.2-12.2) K/uL RBC (4.40-5.70) M/uL Hgb (14.0-18.0) gm/dl Hct (42.0-52.0) % MCV (81-97) fl MCH 33.2 H (27-33) pg Neutrophils % 95.0 H (47-80) % Lymphocytes % 3.1 L (16-45) % Monocytes % (0-9) % Lymphocytes 2.0 L (16-45) % Sodium 133 L (136-145) mmol/L Chloride 95 L (98-107) mmol/L Creatinine (0.7-1.2) mg/dL Random Glucose 135 H (74-109) mg/dL Calcium (8.8-10.2) mg/dL Urine Blood Small H (NEGATIVE) Ur Leukocyte Esterase Trace H (NEGATIVE) 03/16/19 03/17/19 03/17/19 Range/Units Unknown 06:25 06:25 WBC (4.2-12.2) K/uL RBC 3.92 L (4.40-5.70) M/uL Hgb 12.9 L (14.0-18.0) gm/dl Hct 39.5 L (42.0-52.0) % MCV 100.8 H (81-97) fl MCH (27-33) pg Neutrophils % (47-80) % Lymphocytes % (16-45) % Monocytes % 10.3 H (0-9) % Lymphocytes (16-45) % Sodium (136-145) mmol/L Chloride (98-107) mmol/L Creatinine 1.3 H (0.7-1.2) mg/dL Random Glucose (74-109) mg/dL Calcium 8.0 L (8.8-10.2) mg/dL Urine Blood Small H (NEGATIVE) Ur Leukocyte Esterase Moderate H (NEGATIVE) Condition at Discharge: (1) Good VTE Discharge VTE Reason For No Overlap Therapy: Not Indicated Discharge Medications - Discharge Medications Prescriptions: Ciprofloxacin HCl [Cipro] 500 mg PO Q12HR #20 tablet Home Medications: Ambulatory Orders Atorvastatin Calcium 40 mg PO QHS 03/17/19 [Last Taken Unknown] Ciprofloxacin HCl [Cipro] 500 mg PO Q12HR #20 tablet 03/17/19 [Last Taken Unknown] Lisinopril 20 mg PO DAILY 03/17/19 [Last Taken Unknown] Tamsulosin HCl [Flomax] 0.4 mg PO QHS 03/17/19 [Last Taken Unknown] Discharge Plan - Discharge Instructions Additional Instructions: Activity: Diet: Consults: [] Follow Up: [] Dressing/Wound Care: (Type) (Change) Additional: [] Quality Measures - Quality Measures Quality Measures: Advance Directives, Documentation of Current Medications in Medical Record, Elder Maltreatment Screen and Follow-Up Plan, Screening for High Blood Pressure and F/U Documented - Current Medications Quality Measure: Measure #130: Documentation of Current Medications Documentation of Current Medications: <Current Medications Documented/Reviewed> [[id number]] - Blood Pressure Screening Quality Measure: Screening for High Blood Pressure and Follow-Up Documented Does Patient Have Any of the Following: Active Dx of HTN Blood Pressure Classification: Hypertensive Reading Systolic Measurement: 180 Diastolic Measurement: 99 Screening for High Blood Pressure: Patient Exclusion, Hx of HTN [G9744] - Advance Directives Quality Measure: Measure #47: Care Plan Advance Directives Established: No Advance Directives Information Provided To Patient: Declined Advance Directives on File: No Living Will: Yes (SNUBBER: ) Power of Deep Tissue Massage Therapist: No Advance Care Planning: <Care Plan/Decision Maker Documented; Discussed & Documented> [[id number]] - Elder Abuse Suspicion Index Screening: Elder Abuse Suspicion Index Screening Rely on people for bathing, dressing, shopping, banking, etc: No Prevented from getting food, clothes, medication, etc: No Made to feel shamed or threatened by someone: No Forced to sign papers or use money against will: No Feel afraid, touched in ways not wanted or hurt physically: No Poor eye contact, withdrawn, malnourished, cuts or bruises: No Screening Result: Negative result EASI Reference Information: Mina PEREZ, Rosalio C, Augustus D, Alejandro Vegas.Development and validation of a tool to assist physicians identification of elder abuse: The Elder Abuse Suspicion Index (EASI ). Journal of Elder Abuse and Neglect, 2008; 20 (3): 276-300. - Elder Maltreatment Screen Quality Measures: Elder Maltreatment Screen and Follow-Up Plan Elder Maltreatment Screen: <Negative, No Follow-Up Plan Required> [E1546]
[2019-03-17] MEDS ORDERED: ENOXAPARIN 40 MG/0.4 ML SYR SQ SCH (12:15)
--- NOTE | 2019-03-17 12:45 | Discharge Note ---
VTE H&P Assessment - Risk for VTE Risk for VTE: Yes Risk Level: Moderate Risk Assessment Date: 03/17/19 Risk Assessment Time: 12:11 VTE Orders Placed or Will Be Placed: Yes Discharge Medications - Discharge Medications Prescriptions: Ciprofloxacin HCl [Cipro] 500 mg PO Q12HR #20 tablet Home Medications: Ambulatory Orders Atorvastatin Calcium 40 mg PO QHS 03/17/19 [Last Taken Unknown] Ciprofloxacin HCl [Cipro] 500 mg PO Q12HR #20 tablet 03/17/19 [Last Taken Unknown] Lisinopril 20 mg PO DAILY 03/17/19 [Last Taken Unknown] Tamsulosin HCl [Flomax] 0.4 mg PO QHS 03/17/19 [Last Taken Unknown] Discharge Note - Date Date of Discharge Note: 03/17/19 Disposition: Home, Self-Care Condition: (1) Good Additional Instructions: as tolerated Activity: Diet: Consults: [] Follow Up: [follow up with Tiny Lrasen in 3 to 7 days and urine culture is pending. also he should follow up with urology for recurrent URI's and BPH Use tylenol 1000 mg every 6 hours or motrin 600 mg (three pills OTC every 6 hours ) for his back pain. Patient informed me he is not taking diclofenac or voltaren which I don't want him taking that with the motrin.] Dressing/Wound Care: (Type) (Change) Additional: [] Prescriptions: Ciprofloxacin HCl [Cipro] 500 mg PO Q12HR #20 tablet Referrals: Benjamin Jacob D.O. [DOCTOR OF OSTEOPATH] - Tiny Larsen [email or web address] [Primary Care Provider] - Forms: Patient Portal Access Activity at Discharge: Increase Activity as Tolerated Diet at Discharge: Regular Diet
[2019-03-17] MEDS ORDERED: TAMSULOSIN HCL 0.4 MG CAP.ER.24H PO SCH (22:00)
[2019-03-17] MEDS ORDERED: CIPROFLOXACIN HCL 500 MG TABLET PO SCH (22:00)
[2019-03-17] MEDS ORDERED: ATORVASTATIN 20 MG TABLET PO SCH (22:00)
--- NOTE | 2019-03-18 06:02 | Discharge Summary ---
DISCHARGE DIAGNOSES: 1. Urinary tract infection. 2. Possible pyelonephritis. 3. Status post hypertension. 4. Status post benign prostatic hyperplasia. 5. Status post hypercholesterolemia. 6. Status post arthritis. 7. History of recurrent urinary tract infections. ATTENDING PHYSICIAN: Benjamin Jacob DO REASON FOR HOSPITALIZATION: This 63-year-old male presented to the emergency department with nausea, vomiting, and diarrhea. He said his 3-year-old relative had the same thing, thought he caught that. He also was seen in the emergency department by Dr. Naik who did a urine on him that showed signs of urinary tract infection. Thought possibly pyelonephritis. CT scan did not reveal any signs of pyelonephritis but he does have right flank pain which he said came on when he was dragging a deer out of the [place] 4 days ago. The pain in his right flank is reproducible on palpation and rotation and movement of his back. SIGNIFICANT FINDINGS: His urine showed initially 18,000 white count and dropped down to 8000, hemoglobin 16 and dropped down to 12.9. He is not circumcised. The first urine was contaminated. The second urine after cleaning off the glans showing 21-35 WBCs, nitrate, small amount of blood which is 3-6 RBCs, and few bacteria. Culture was set up. The patient was given 1 g of Rocephin in the emergency department and started on Cipro 400 mg twice a day. CT scan revealed no evidence of acute posttraumatic abnormalities in the abdomen or pelvis. There is a lwdy-iz-wtsahrej fluid and air throughout nondilated small bowel loops in the pelvis. No obvious transition point or other evidence of obstruction. Findings could relate to an incidental enteritis or possibly mild small bowel ileus. There is no urinary tract calculus or obstructive uropathy seen. HOSPITAL COURSE: The patient is much better at the time of seeing him. He would like to go home. He had one dose of Rocephin, one dose of Cipro, and he ate a normal breakfast. No vomiting or diarrhea since he came into the hospital. CONDITION ON DISCHARGE: Much improved. DISCHARGE INSTRUCTIONS: Follow up with Tiny Larsen in 3-7 days. His urine culture should be done at that point. Follow up with Urology for his benign prostatic hyperplasia and his recurrent urinary tract infections. He is having some insurance problems and not able to get a procedure done that Urology wants to do, at least not having it paid for is the problem. This seems to be aggravating him fairly significantly. Advised him to check with his insurance person or insurance company. He has Medicare Federal. He is to follow up with Urology and his primary provider. He has Paper[employer]. Activity as tolerated. Use Tylenol 1000 mg every 6 hours p.r.n. for his back pain or/and Motrin 600 mg over the counter, 3 qjmn-viy-nnyvood pills 200 mg every 6 hours. Prescription of Cipro will be sent in, 500 mg b.i.d. for 10 days. He is to continue his home medications of tamsulosin 0.4 mg at h.s., lisinopril 20 mg daily, atorvastatin 40 mg at h.s., metoprolol tartrate 12.5 b.i.d. He informed me he is not on Voltaren, which is on the computer note. MTDD
--- NOTE | 2019-03-18 06:06 | History and Physical Report ---
HISTORY OF PRESENT ILLNESS: The patient is a 63-year-old male with a chief complaint of nausea and vomiting which started 6:30 yesterday a.m. The patient also states he had some back pain pulling a [place] out of the [place], which happened approximately 3-4 days ago. The thoracic back area is sore on the T11- T12 area right side of his upper back. The patient had 10 hours with nausea and vomiting and loose watery stool, many episodes since this morning, about once an hour. He had a 3-year-old who had vomiting and diarrhea that he has been around. The patient was seen in the emergency department by Dr. Naik, admitted to the hospital for vomiting, diarrhea, and pyelonephritis. The patient's urine showed signs of urinary tract infection and he had pain in the right flank area. PAST MEDICAL HISTORY: Prostatic hyperplasia, hypertension, hypercholesterolemia, arthritis, anxiety. PAST SURGICAL HISTORY: Vasectomy, appendectomy, stomach lining. MEDICATIONS: 1. Flomax 0.4 mg daily. 2. Lisinopril 20 mg daily. 3. Atorvastatin 40 mg at h.s. 4. Metoprolol 12.5 b.i.d. 5. Voltaren 4 times a day. ALLERGIES: CODEINE. SOCIAL HISTORY: Former smoker. He stopped 30 years ago. Heavy alcohol use. No drug use. FAMILY HISTORY: Alzheimer's, hypertension. Father had dementia. Mother had a stroke. REVIEW OF SYSTEMS: HEENT: No upper respiratory infection symptoms, cough, cold, or congestion. Cardiovascular: No chest pain, palpitations, or arrhythmia. He does have some right flank pain. Respiratory: No cough, cold, or congestion. No sleep disorder. Gastrointestinal: He did have nausea and vomiting which has resolved. He has not had any vomiting or diarrhea in the hospital since admission. His pain in the right flank is worse when he moves around. Genitourinary: No dysuria, hematuria, frequency, or burning on urination. However, he has the right flank pain and urine that shows urinary tract infection. Because of that, Dr. Naik was concerned he has pyelonephritis and admitted him to the hospital for IV antibiotics. Musculoskeletal: He does have some diffuse arthritis. Neurological: No CVA, paralysis, or paresthesias. Endocrine: No diabetes or thyroid disease. Integument: No rash, ulcers, change in moles, or yellow skin. PHYSICAL EXAMINATION: VITALS: Height 6 feet, weight 215 pounds. Temperature 97.7, pulse 65, blood pressure 111/64, respiratory rate 20, pulse ox 96% on room air. HEENT: Pupils are equal, round, and reactive to light and accommodation. Extraocular muscles are intact. Throat is clear. Nose is clear. Tympanic membranes are gómez. NECK: Supple. No jugular venous distention. No hepatojugular reflux. No carotid bruits. Thyroid is smooth. CARDIOVASCULAR: Regular rate and rhythm without murmurs, clicks, rubs, or gallops. RESPIRATORY: Clear to auscultation and percussion. ABDOMEN: Soft, nontender. No hepatosplenomegaly, no masses, no tenderness. Bowel sounds are active. No bruits. EXTREMITIES: No pitting edema. No cyanosis, no clubbing. Full range of motion. BREASTS: Normal male breasts. RECTAL: Deferred. GENITALIA: Deferred. NEUROLOGIC: Cranial nerves II-XII intact. No gross defects. Sensation normal, strength normal. Deep tendon reflexes equal bilaterally. Babinski negative. MENTAL STATUS: Alert and oriented x3. SKIN: Good. No rashes or changes. IMPRESSION: 1. Acute urinary tract infection. 2. Acute pyelonephritis. 3. History of benign prostatic hyperplasia. 4. History of hypercholesterolemia. 5. History of hypertension. 6. History of arthritis. PLAN: IV Cipro. We will switch over to oral Cipro. He is feeling better. He would like to go home. We will set up for a discharge. Urine cultures are pending. ADDENDUM The patient when I went to tell him his instruction, he was upset that he was waiting so long. It was about 12:30 in the afternoon. He also stated he was not happy with having me as a physician. I guess he had some preconceived idea. He did not want to have me. However, I reassured him that he needs to take his antibiotic, follow up with his primary care physician, and follow up with his urologist. He also was upset with his insurance and not able to get a procedure done through Urology. ELLIOT
== END 2019-03-17 13:05 | disposition home or self-care (01) ==
LOC: ER 16:10 → MEDSURG 20:01
PROVIDERS: ADMIT Internal Medicine; ATTEND Internal Medicine
DX: N39.0 Urinary tract infection, site not specified (principal); N12 Tubulo-interstitial nephritis, not specified as acute or chronic; R19.7 Diarrhea, unspecified; R68.83 Chills (without fever); I10 Essential (primary) hypertension; E78.00 Pure hypercholesterolemia, unspecified; M19.90 Unspecified osteoarthritis, unspecified site; Z87.891 Personal history of nicotine dependence; R76.11 Nonspecific reaction to tuberculin skin test without active tuberculosis
CPT/HCPCS: 74176; 80048; 80076; 81001; 83690; 84484; 85025; 85027; 87400; 96374; 96375; 99220; 99285; J1885; J2405; J7030